=== PATIENT | female | born 1970 | race Caucasian/White ===

== ENCOUNTER 2016-08-23 12:27 | Emergency (ER) | payer SELFPAY ==
[~2016-08-23] VITALS: Ht 177.8 cm; Wt 94.0 kg
[~2016-08-23 12:27] MED LIST: AGM875T PO; CODE-54 PO; HYDR-757 PO; HYDR1TAB PO; HYOS0.1283 SL; NITR-65 PO; ONDA4TAB8 PO; PANT40TA2 PO; SULF1TAB35 PO; TRM50T PO
--- NOTE | 2016-08-23 12:37 | ED Fall/Injury ---
General Stated Complaint: R SIDE RIB PAIN, FALL Source: patient Exam Limitations: no limitations History of Present Illness Time seen by provider: 12:36 Initial Comments To ER with right sided chest wall pain that began last night when she slipped and fell in her bathroom striking the right side of her chest on the edge of her bathtub. Pain is worsened with deep breathing and movement especially bending over. She has minimal pain in her abdomen Occurred: yesterday Severity: moderate Allergies and Home Medications Allergies Coded Allergies: codeine (Verified Adverse Reaction, Unknown, VOMITING, 01/06/15) Home Medications No Active Prescriptions or Reported Meds Constitutional: see HPI Eyes: No Symptoms Reported Ears, Nose, Mouth, Throat: no symptoms reported Respiratory: no symptoms reported Cardiovascular: no symptoms reported Genitourinary: no symptoms reported Musculoskeletal: no symptoms reported Skin: no symptoms reported Psychiatric/Neurological: No Symptoms Reported Past Tpqavlc-Qusfcw-Aqgpht Hx Patient Social History Type Used: Cigarettes Recent Foreign Travel: No Contact w/Someone Who Travel: No Recent Hopitalizations: No (DETOX 10 YEARS) Immunizations Up To Date Tetanus Booster (TDap): Less than 5yrs Surgeries HX Surgeries: No Respiratory Hx Respiratory Disorders: No Cardiovascular Hx Cardiac Disorders: No Neurological Hx Neurological Disorders: No Reproductive System Hx Reproductive Disorders: Yes Female Reproductive Disorders: Denies Genitourinary Hx Genitourinary Disorders: No Gastrointestinal Hx Gastrointestinal Disorders: Yes Gastrointestinal Disorders: Diverticulosis Musculoskeletal Hx Musculoskeletal Disorders: No Endocrine Hx Endocrine Disorders: No HEENT HX ENT Disorders: No Cancer Hx Cancer: No Psychosocial Hx Psychiatric Problems: Yes Behavioral Health Disorders: Sleep Difficulties, Depression Integumentary HX Skin/Integumentary Disorder: No Blood Transfusions Hx Blood Disorders: No Physical Exam Vital Signs Vital Sign - Last 12Hours 08/23/16 12:37 Temp 98.2 Pulse 99 Resp 18 B/P (MAP) 142/96 Pulse Ox 94 O2 Delivery Room Air Capillary Refill : General Appearance: WD/WN, no apparent distress HEENT: PERRL/EOMI, normal ENT inspection Neck: non-tender, full range of motion Cardiovascular: other (right side of the chest wall is tender to palpation though there is no crepitus ecchymosis or abrasion) Respiratory: no respiratory distress, no accessory muscle use Gastrointestinal: normal bowel sounds, non tender, soft Extremities: normal range of motion, non-tender 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: alert, normal mood/affect, oriented x 3 Skin: normal color, warm/dry Grabill Coma Score Best Eye Response: (4) Open Spontaneously Best Verbal Response: (5) Oriented Best Motor Response: (6) Obeys Commands Lida Total: 15 Progress/Results/Core Measures Results/Orders My Orders Orders - SHAILESH REYES APRN Ribs/Unilateral With Chest (08/23/16 12:35) Ibuprofen Tablet (Motrin Tablet) (08/23/16 12:45) Tramadol Tablet (Ultram Tablet) (08/23/16 12:45) Medications Given in ED Current Medications Medications Dose Ordered Sig/Gill Route Start Time Stop Time Status Last Admin Dose Admin Ibuprofen 800 mg ONCE ONCE PO 08/23/16 12:45 08/23/16 12:46 DC 08/23/16 12:44 800 MG Tramadol HCl 50 mg ONCE ONCE PO 08/23/16 12:45 08/23/16 12:46 DC 08/23/16 12:44 50 MG Vital Signs/I&O Vital Sign - Last 12Hours 08/23/16 08/23/16 08/23/16 12:37 12:44 12:44 Temp 98.2 98.2 98.2 Pulse 99 Resp 18 B/P (MAP) 142/96 Pulse Ox 94 O2 Delivery Room Air Diagnostic Imaging Diagonstic Imaging: CT ( she) Comments NAME: DAMIR PUENTES [facility] REC#: [id number] PT STATUS: REG ER : 1970 PHYSICIAN: SHAILESH REYES APRN ADMIT DATE: 08/23/16/ER Draft Date of Exam:08/23/16 RIBS/UNILATERAL WITH CHEST PA chest with right sided rib series. INDICATION: Fall. Right-sided rib pain. FINDINGS: Appearance of the lungs is unchanged from the previous examination. There are chronic prominence of the basilar interstitial markings. Metallic foreign body projects over of the left chest. This is unchanged. There is a remote left-sided rib fracture. There is no effusion. There is no pneumothorax. The right-sided rib series demonstrates no evidence of a right-sided rib fracture. IMPRESSION: 1. Stable radiograph appearance to the chest. Chronic prominent pulmonary interstitial markings are demonstrated. There is an unchanged metallic foreign body projecting over the left lung. There is a remote left rib fracture. No acute right-sided rib fractures are evident. Dictated on workstation # [id number] Dict: 08/23/16 1259 Trans: 08/23/16 1306 [facility] [id number] Interpreted by: RICARDO HERRERA MD Electronically signed by: Departure Impression Impression: Primary Impression: Chest wall injury Disposition: 01 HOME, SELF-CARE Condition: Stable Departure-Patient Inst. Decision time for Depature: 13:22 Referrals: [facility] ([place]P/Family) Primary Care Physician Patient Instructions: CHEST CONTUSION Add. Discharge Instructions: 1. Return to ER for any concerns 2. Follow up with your regular doctor next week 3. Pain medication as directed Scripts Tramadol HCl (Ultram) 50 Mg Tablet 50 MG PO Q6H Y for PAIN-MILD TO MODERATE, #14 TAB Prov: SHAILESH REYES APRN 08/23/16 SHAILESH REYES APRN Aug 23, 2016 12:37
[2016-08-23] MEDS ORDERED: IBUPROFEN 800 MG (MOTRIN) TAB PO ONE (12:45)
--- NOTE | 2016-08-23 13:06 | Diagnostic Imaging Report ---
PA chest with right sided rib series. INDICATION: Fall. Right-sided rib pain. FINDINGS: Appearance of the lungs is unchanged from the previous examination. There are chronic prominence of the basilar interstitial markings. Metallic foreign body projects over of the left chest. This is unchanged. There is a remote left-sided rib fracture. There is no effusion. There is no pneumothorax. The right-sided rib series demonstrates no evidence of a right-sided rib fracture. IMPRESSION: 1. Stable radiograph appearance to the chest. Chronic prominent pulmonary interstitial markings are demonstrated. There is an unchanged metallic foreign body projecting over the left lung. There is a remote left rib fracture. No acute right-sided rib fractures are evident. Dictated by: Dictated on workstation # [id number]
[2016-08-23] MEDS ORDERED: TRAM-42 PO (13:24)
[2016-08-23 13:29] VITALS: BP 142/96
== END 2016-08-23 13:29 | disposition home or self-care (01) ==
LOC: EDUNIT# 12:27 → ER 12:28
DX: S20.211A Contusion of right front wall of thorax, initial encounter (principal); W18.2XXA Fall in (into) shower or empty bathtub, initial encounter; Y92.012 Bathroom of single-family (private) house as the place of occurrence of the external cause; Y99.8 Other external cause status
CPT/HCPCS: 71101; 99283

== ENCOUNTER 2017-01-20 10:27 | Emergency (ER) | payer SELFPAY ==
[~2017-01-20] VITALS: Ht 177.8 cm; Wt 93.0 kg
[~2017-01-20 10:27] MED LIST changes: +TRAM-42 PO
--- NOTE | 2017-01-20 11:10 | ED Abdominal Pain ---
General Chief Complaint: Abdominal/GI Problems Stated Complaint: LEFT LOWER SIDE PAIN Source of Information: Patient Exam Limitations: No Limitations History of Present Illness Time Seen By Provider: 11:08 Initial Comments To ER with left lower quadrant abdominal pain since yesterday. She has a history of diverticulitis and believes this to be the same. She has nausea and chills but no vomiting or measured fever. Continues to have bowel movements. Timing/Duration: 1-2 Days Severity/Quality: Moderate Location: LLQ Radiation: No Radiation Associated Symptoms: Nausea/Vomiting Allergies and Home Medications Allergies Coded Allergies: codeine (Verified Adverse Reaction, Unknown, VOMITING, 01/06/15) Home Medications Ciprofloxacin HCl 500 Mg Tablet, 500 MG PO BID, #14 Prescribed by: SHAILESH REYES on 01/20/17 1225 Metronidazole 500 Mg Tablet, 500 MG PO TID, #21 Prescribed by: SHAILESH REYES on 01/20/17 1225 Ondansetron 8 Mg Tab.rapdis, 8 MG PO Q6H PRN for NAUSEA/VOMITING-1ST LINE, #10 Prescribed by: SHAILESH REYES on 01/20/17 1225 Tramadol HCl 50 Mg Tablet, 50 MG PO Q6H PRN for PAIN-MILD TO MODERATE, #14 Prescribed by: SHAILESH REYES on 08/23/16 1324 Tramadol HCl 50 Mg Tablet, 50 MG PO Q6H PRN for PAIN-MODERATE TO SEVERE, #14 Prescribed by: SHAILESH REYES on 01/20/17 1225 Review of Systems Constitutional: see HPI, chills, No fever EENTM: No Symptoms Reported Respiratory: No Symptoms Reported Cardiovascular: No Symptoms Reported Gastrointestinal: See HPI, Abdominal Pain, Denies Diarrhea, Nausea, Denies Vomiting ( lamella) Genitourinary: No Symptoms Reported Musculoskeletal: no symptoms reported Skin: no symptoms reported Psychiatric/Neurological: No Symptoms Reported Endocrine: No Symptoms Reported (lamella) Past Ylpzkck-Upvcbc-Eiwssl Hx Patient Social History Alcohol Use: Occasionally Uses Recreational Drug Use: No Type Used: Cigarettes 2nd Hand Smoke Exposure: Yes Recent Foreign Travel: No Contact w/Someone Who Travel: No Recent Hopitalizations: No (DETOX 10 YEARS) Immunizations Up To Date Tetanus Booster (TDap): Less than 5yrs Surgeries History of Surgeries: No Respiratory History of Respiratory Disorde: No Cardiovascular History of Cardiac Disorders: No Neurological History of Neurological Disord: No Reproductive System Hx Reproductive Disorders: Yes Female Reproductive Disorders: Denies Gastrointestinal History of Gastrointestinal Di: Yes Gastrointestinal Disorders: Diverticulosis Musculoskeletal History of Musculoskeletal Dis: No Endocrine History of Endocrine Disorders: No Cancer History of Cancer: No Psychosocial History of Psychiatric Problem: Yes Behavioral Health Disorders: Sleep Difficulties, Depression Integumentary History of Skin or Integumenta: No Blood Transfusions History of Blood Disorders: No Physical Exam Vital Signs VS - Last 72 Hours, by Label 01/20/17 11:06 Temp 97.6 Pulse 78 Resp 18 B/P (MAP) 142/78 Pulse Ox 98 O2 Delivery Room Air Capillary Refill : General Appearance: WD/WN, no apparent distress HEENT: PERRL/EOMI, normal ENT inspection Neck: non-tender, full range of motion Respiratory: normal breath sounds, no respiratory distress, no accessory muscle use Cardiovascular: regular rate, rhythm, no murmur Gastrointestinal: normal bowel sounds, soft, tenderness (LLQ) Extremities: normal range of motion, non-tender, normal inspection 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: alert, normal mood/affect, oriented x 3 Progress/Results/Core Measures Results/Orders Lab Results Laboratory Tests Test 01/20/17 11:00 01/20/17 11:17 Range/Units White Blood Count 4.3 4.3-11.0 10^3/uL Red Blood Count 4.00 L 4.35-5.85 10^6/uL Hemoglobin 13.7 11.5-16.0 G/DL Hematocrit 40 35-52 % Mean Corpuscular Volume 101 H 80-99 FL Mean Corpuscular Hemoglobin 34 25-34 PG Mean Corpuscular Hemoglobin Concent 34 32-36 G/DL Red Cell Distribution Width 12.3 10.0-14.5 % Platelet Count 219 130-400 10^3/uL Mean Platelet Volume 9.1 7.4-10.4 FL Neutrophils (%) (Auto) 60 42-75 % Lymphocytes (%) (Auto) 26 12-44 % Monocytes (%) (Auto) 13 H 0-12 % Eosinophils (%) (Auto) 1 0-10 % Basophils (%) (Auto) 1 0-10 % Neutrophils # (Auto) 2.6 1.8-7.8 X 10^3 Lymphocytes # (Auto) 1.1 1.0-4.0 X 10^3 Monocytes # (Auto) 0.5 0.0-1.0 X 10^3 Eosinophils # (Auto) 0.0 0.0-0.3 10^3/uL Basophils # (Auto) 0.0 0.0-0.1 10^3/uL Urine Test NEGATIVE NEGATIVE Sodium Level 136 135-145 MMOL/L Potassium Level 3.9 3.6-5.0 MMOL/L Chloride Level 106 98-107 MMOL/L Carbon Dioxide Level 22 21-32 MMOL/L Anion Gap 8 5-14 MMOL/L Blood Urea Nitrogen 9 7-18 MG/DL Creatinine 0.75 0.60-1.30 MG/DL Estimat Glomerular Filtration Rate > 60 BUN/Creatinine Ratio 12 Glucose Level 128 H 70-105 MG/DL Calcium Level 8.9 8.5-10.1 MG/DL Total Bilirubin 0.7 0.1-1.0 MG/DL Aspartate Amino Transf (AST/SGOT) 26 5-34 U/L Alanine Aminotransferase (ALT/SGPT) 20 0-55 U/L Alkaline Phosphatase 58 40-136 U/L Total Protein 6.4 6.4-8.2 GM/DL Albumin 3.9 3.2-4.5 GM/DL Urine Color YELLOW Urine Clarity CLEAR Urine pH 6 5-9 Urine Specific [place] 1.020 1.016-1.022 Urine Protein NEGATIVE NEGATIVE Urine Glucose (UA) NEGATIVE NEGATIVE Urine Ketones NEGATIVE NEGATIVE Urine Nitrite NEGATIVE NEGATIVE Urine Bilirubin NEGATIVE NEGATIVE Urine Urobilinogen NORMAL NORMAL MG/DL Urine Leukocyte Esterase NEGATIVE NEGATIVE Urine RBC (Auto) 2+ H NEGATIVE Urine RBC 0-2 /HPF Urine WBC RARE /HPF Urine Squamous Epithelial Cells 2-5 /HPF Urine Crystals NONE /LPF Urine Bacteria NEGATIVE /HPF Urine Casts NONE /LPF Urine Mucus SMALL H /LPF Urine Culture Indicated NO My Orders Orders - SHAILESH REYES APRN Cbc With Automated Diff (01/20/17 11:06) Ua Culture If Indicated (01/20/17 11:06) Urine Bedside (01/20/17 11:06) Saline Lock/Iv-Start (01/20/17 11:06) Ct Abdomen/Pelvis W (01/20/17 11:06) Fentanyl Injection (Sublimaze Injection (01/20/17 11:15) Ondansetron Injection (Zofran Injectio (01/20/17 11:15) Hcg,Qualitative Urine (01/20/17 11:32) Comprehensive Metabolic Panel (01/20/17 11:45) Medications Given in ED Current Medications Medications Dose Ordered Sig/Gill Route Start Time Stop Time Status Last Admin Dose Admin Fentanyl Citrate 50 mcg ONCE ONCE IVP 01/20/17 11:15 01/20/17 11:16 DC 01/20/17 11:37 50 MCG Ondansetron HCl 4 mg ONCE ONCE IVP 01/20/17 11:15 01/20/17 11:16 DC 01/20/17 11:36 4 MG Vital Signs/I&O Vital Sign - Last 12Hours 01/20/17 11:06 Temp 97.6 Pulse 78 Resp 18 B/P (MAP) 142/78 Pulse Ox 98 O2 Delivery Room Air Diagnostic Imaging Diagonstic Imaging: CT Comments NAME: DAMIR PUENTES [facility] REC#: [id number] PT STATUS: REG ER : 1970 PHYSICIAN: SHAILSEH REYES OPERATIONS MANAGEMENT TRAINEE ADMIT DATE: 01/20/17/ER Draft Date of Exam:01/20/17 CT ABDOMEN/PELVIS W PROCEDURE: CT abdomen and pelvis with contrast. TECHNIQUE: Multiple contiguous axial images were obtained through the abdomen and pelvis after administration of intravenous contrast. INDICATION: Left flank pain Comparison is made to study of 01/16/2016. No focal hepatic or splenic lesion is identified. No gallbladder or pancreatic lesion is seen and the adrenal glands and kidneys are unremarkable in appearance. There is mild mural thickening throughout the jejunum without significant perienteric inflammation. There are numerous diverticula again demonstrated throughout the colon without evidence of pericolonic edema or inflammation. No free intraperitoneal gas or free fluid is identified. There has been enlargement of the ovaries bilaterally with numerous follicles. Partially opacified urinary bladder is within normal limits. IMPRESSION: Duodenal mural thickening may represent enteritis. No significant mesenteric inflammation or fluid collection is identified. Extensive diverticulosis of the colon without evidence of active inflammation. Increase in numerous bilateral ovarian follicles. If indicated, pelvic ultrasonography could be considered for followup. Dictated on workstation # [id number] Dict: 01/20/17 1207 Trans: 01/20/17 1220 [facility] [id number] Interpreted by: JOANNA ZAMORA MD Electronically signed by: Departure Impression Impression: Primary Impression: Diverticulitis of intestine Disposition: 01 HOME, SELF-CARE Condition: Stable Departure-Patient Inst. Decision time for Depature: 12:23 Referrals: [facility] (PCP/Family) Primary Care Physician Patient Instructions: Diverticulitis (DC) Add. Discharge Instructions: 1. Return to ER for any concerns 2. Medication as directed 3. Follow-up with her doctor next week All discharge instructions reviewed with patient and/or family. Voiced understanding. Scripts Metronidazole (Flagyl) 500 Mg Tablet 500 MG PO TID, #21 TAB Prov: SHAILESH REYES APRN 01/20/17 Ciprofloxacin HCl (Cipro) 500 Mg Tablet 500 MG PO BID, #14 TAB Prov: SHAILESH REYES APRN 01/20/17 Ondansetron (Zofran Odt) 8 Mg Tab.rapdis 8 MG PO Q6H Y for NAUSEA/VOMITING-1ST LINE, #10 TAB Prov: SHAILESH REYES APRN 01/20/17 Tramadol HCl (Ultram) 50 Mg Tablet 50 MG PO Q6H Y for PAIN-MODERATE TO SEVERE, #14 TAB Prov: SHAILESH REYES APRN 01/20/17 Work/School Note: Work Release Form Date Seen in the Emergency Department: Jan 20, 2017 Return to Work: Jan 22, 2017 Restrictions: No Restrictions SHAILESH REYES APRN Jan 20, 2017 11:10
[2017-01-20] MEDS ORDERED: ONDANSETRON 4 MG/2 ML (SDV) Z0FRAN IVP ONE (11:15)
[2017-01-20] MEDS ORDERED: fentaNYL INJECTION 100 MCG/2 ML AMP IVP ONE (11:15)
[2017-01-20 11:31] LABS: BILIRUBIN,URINE NEGATIVE (NEGATIVE); KETONES,URINE NEGATIVE (NEGATIVE); LEUKOCYTE ESTERASE ,URINE NEGATIVE (NEGATIVE); NITRITE,URINE NEGATIVE (NEGATIVE); PH,URINE 6 (5-9); PROTEIN,URINE NEGATIVE (NEGATIVE); UROBILINOGEN,URINE NORMAL (NORMAL)
[2017-01-20 11:32] LABS: WBC,URINE RARE /HPF
[2017-01-20 11:38] LABS: BASOPHILS % (AUTO) 1 % (0-10); EOSINOPHILS % (AUTO) 1 % (0-10); LYMPHOCYTES # (AUTO) 1.1 X 10^3 (1.0-4.0); LYMPHOCYTES % (AUTO) 26 % (12-44); MEAN CORPUSCULAR HEMOGLOBIN 34 PG (25-34); MEAN CORPUSCULAR HGB CONC 34 G/DL (32-36); MEAN CORPUSCULAR VOLUME 101 FL (80-99); MEAN PLATELET VOLUME 9.1 FL (7.4-10.4); MONOCYTES # (AUTO) 0.5 X 10^3 (0.0-1.0); MONOCYTES % (AUTO) 13 % (0-12); NEUTROPHILS # (AUTO) 2.6 X 10^3 (1.8-7.8); NEUTROPHILS % (AUTO) 60 % (42-75); PLATELET COUNT 219 10^3/uL (130-400); RED CELL DISTRIBUTION WIDTH 12.3 % (10.0-14.5); WHITE BLOOD COUNT 4.3 10^3/uL (4.3-11.0)
[2017-01-20 12:02] LABS: ALANINE AMINOTRANSFERASE 20 U/L (0-55); ALBUMIN 3.9 GM/DL (3.2-4.5); ANION GAP 8 MMOL/L (5-14); ASPARTATE AMINO TRANSFERASE 26 U/L (5-34); BILIRUBIN,TOTAL 0.7 MG/DL (0.1-1.0); BLOOD UREA NITROGEN 9 MG/DL (7-18); BUN/CREATININE RATIO 12; CALCIUM 8.9 MG/DL (8.5-10.1); CARBON DIOXIDE 22 MMOL/L (21-32); CHLORIDE 106 MMOL/L (98-107); CREATININE SERUM 0.75 MG/DL (0.60-1.30); GFR ESTIMATED > 60; GLUCOSE 128 MG/DL (70-105); POTASSIUM 3.9 MMOL/L (3.6-5.0); SODIUM 136 MMOL/L (135-145); TOTAL PROTEIN 6.4 GM/DL (6.4-8.2)
--- NOTE | 2017-01-20 12:21 | Diagnostic Imaging Report ---
PROCEDURE: CT abdomen and pelvis with contrast. TECHNIQUE: Multiple contiguous axial images were obtained through the abdomen and pelvis after administration of intravenous contrast. INDICATION: Left flank pain Comparison is made to study of 01/16/2016. No focal hepatic or splenic lesion is identified. No gallbladder or pancreatic lesion is seen and the adrenal glands and kidneys are unremarkable in appearance. There is mild mural thickening throughout the jejunum without significant perienteric inflammation. There are numerous diverticula again demonstrated throughout the colon without evidence of pericolonic edema or inflammation. No free intraperitoneal gas or free fluid is identified. There has been enlargement of the ovaries bilaterally with numerous follicles. Partially opacified urinary bladder is within normal limits. IMPRESSION: Duodenal mural thickening may represent enteritis. No significant mesenteric inflammation or fluid collection is identified. Extensive diverticulosis of the colon without evidence of active inflammation. Increase in numerous bilateral ovarian follicles. If indicated, pelvic ultrasonography could be considered for followup. Dictated by: Dictated on workstation # [id number]
[2017-01-20] MEDS ORDERED: CIPR-225 PO (12:25)
[2017-01-20] MEDS ORDERED: METR500T PO (12:25)
[2017-01-20] MEDS ORDERED: TRAM-42 PO (12:25)
[2017-01-20] MEDS ORDERED: ONDA8TAB9 PO (12:25)
[2017-01-20 12:33] VITALS: BP 142/78
== END 2017-01-20 12:35 | disposition home or self-care (01) ==
LOC: EDUNIT# 10:27 → ER 10:31
DX: K57.92 Diverticulitis of intestine, part unspecified, without perforation or abscess without bleeding; Z77.22 Contact with and (suspected) exposure to environmental tobacco smoke (acute) (chronic); F32.9 Major depressive disorder, single episode, unspecified
CPT/HCPCS: 36415; 74177; 80053; 81000; 84703; 85025; 96374; 96375

== ENCOUNTER 2017-07-09 10:40 | Emergency (ER) | payer SELFPAY ==
[~2017-07-09] VITALS: Ht 177.8 cm; Wt 93.0 kg
[~2017-07-09 10:40] MED LIST changes: +CIPR-225 PO; +METR500T PO; +ONDA8TAB9 PO
--- OUTSIDE RECORDS SUMMARY | 2017-07-09 10:47 | XMS REPORT ---
Author Author SHEPPARD MARK Organization [facility] Address [address] [place] [address] Care Team Providers Care Sporting Goods Sales Manager Name Role Phone MARK SHEPPARD Unavailable PROBLEMS Type Condition ICD9-CM Code [id number] Code Onset Dates Condition Status SNOMED Code Problem Encounter for dental examination Z01.20 Active 777601237 Problem Anxiety F41.9 Active 78798390 Problem Insomnia G47.00 Active 573610919 Problem Depression F32.9 Active 66134912 Problem COPD (chronic obstructive pulmonary disease) J44.9 Active 01613611 Problem Psoriasis L40.9 Active 9555265 ALLERGIES Substance Reaction Event Type Date Status Codeine Sulfate nausea and vomiting Drug Allergy September, Active SOCIAL HISTORY Never Assessed PLAN OF CARE Activity Details Follow Up 1 Year, prn Reason: Pending Test Mammogram, Bilateral Screening VITAL SIGNS Height 70 in 2016-09-02 Weight 205 lbs 2016-09-02 Temperature 99.3 degrees Fahrenheit 2016-09-02 Heart Rate 78 bpm 2016-09-02 Respiratory Rate 20 2016-09-02 BMI 29.41 kg/m2 2016-09-02 Blood pressure systolic 122 mmHg 2016-09-02 Blood pressure diastolic 84 mmHg 2016-09-02 MEDICATIONS Medication Instructions Dosage Frequency Start Date End Date Duration Status Flagyl 500 MG Orally 2 times a day 1 tablet 12h September, September, 07 days Active RESULTS Name Result Date Reference Range PAP TEST, HPV IF ASCUS 2016-09-02 DIAGNOSIS: Specimen adequacy: Clinician provided ICD10: Performed by: . . Pathologist provided ICD10: Note: . CULTURE, GENITAL 2016-09-02 Genital Culture, Routine Final report Result 1 TEST, URINE (IN HOUSE) 2016-09-02 RESULTS Negative Lot # [id number] Control 2017-12-01 Exp date TRICHOMONAS (IN HOUSE) 2016-09-02 TRICHOMONAS negative Control + Lot # [id number] Exp date 2017-10 UA LONG DIP (IN HOUSE) 2016-09-02 Lot # [id number] Exp date 2017-07-01 Clarity Clear Color Yellow Odor None GLU Negative ADONAY Negative KET Negative SG 1.025 BLO 1+ pH 7.0 Protein Negative URO 1.0 NIT Negative JARETH Negative Lot # Exp date PDF Report 2016-09-02 PDF Report1 LCLS BACTERIAL VAGINOSIS (IN HOUSE) 2016-09-02 RESULTS positive Control + Lot # [id number] Exp date 2017-05 GC/CHLAM PROBE (STATE) 2016-09-02 CHLAMYDIA Negative GC Negative PROCEDURES Procedure Date Ordered Result Body Site No Charge September 02, 2016 TRICHOMONAS ASSAY W/OPTIC September 02, 2016 URINE TEST September 02, 2016 URINALYSIS, AUTO, W/O SCOPE September 02, 2016 CULTURE, BACTERIA, OTHER September 02, 2016 CHAVIS VAG, DNA, DIR PROBE September 02, 2016 SPECIMEN HANDLING September 02, 2016 IMMUNIZATIONS No Known Immunizations MEDICAL (GENERAL) HISTORY Type Description Date Medical History diverticulitis Medical History [facility] Hospitalization History Diverticulitis 2012
--- OUTSIDE RECORDS SUMMARY | 2017-07-09 10:47 | XMS REPORT ---
Author Author MARK SHEPPARD [facility] [address] Address [address] [place] [address] Care Team Providers Care Solar Sales Associate Name Role Phone MARK SHEPPARD Unavailable PROBLEMS Type Condition ICD9-CM Code [id number] Code Onset Dates Condition Status SNOMED Code Problem Encounter for dental examination Z01.20 Active 715111232 Problem Anxiety F41.9 Active 86208754 Problem Insomnia G47.00 Active 322671010 Problem Depression F32.9 Active 24334435 Problem COPD (chronic obstructive pulmonary disease) J44.9 Active 98778114 Problem Psoriasis L40.9 Active 5851057 ALLERGIES No Information SOCIAL HISTORY Never Assessed PLAN OF CARE VITAL SIGNS MEDICATIONS No Known Medications RESULTS No Results PROCEDURES Procedure Date Ordered Result Body Site COMPLETE CBC W/AUTO DIFF WBC September 03, 2016 LIPID PANEL September 03, 2016 VENIPUNCT, ROUTINE* September 03, 2016 COMPREHEN METABOLIC PANEL September 03, 2016 IMMUNIZATIONS No Known Immunizations MEDICAL (GENERAL) HISTORY Type Description Date Medical History diverticulitis Medical History [facility] Hospitalization History Diverticulitis 2012
--- OUTSIDE RECORDS SUMMARY | 2017-07-09 10:47 | XMS REPORT ---
Author Author ANDI MONIQUE Organization [facility] Address [address] [place] [address] Care Team Providers Care Nutrition Partner Name Role Phone ANDI MONIQUE Unavailable PROBLEMS Type Condition ICD9-CM Code [id number] Code Onset Dates Condition Status SNOMED Code Problem Encounter for dental examination Z01.20 Active 897421922 Problem Anxiety F41.9 Active 26108552 Problem Insomnia G47.00 Active 772694993 Problem Depression F32.9 Active 66702160 Problem COPD (chronic obstructive pulmonary disease) J44.9 Active 95392346 Problem Psoriasis L40.9 Active 5892055 ALLERGIES Substance Reaction Event Type Date Status Codeine Sulfate nausea and vomiting Drug Allergy September, Active SOCIAL HISTORY Never Assessed PLAN OF CARE Activity Details Follow Up First Available Reason:SRP VITAL SIGNS Heart Rate 80 bpm 2016-09-19 Blood pressure systolic 111 mmHg 2016-09-19 Blood pressure diastolic 63 mmHg 2016-09-19 MEDICATIONS No Known Medications RESULTS No Results PROCEDURES Procedure Date Ordered Result Body Site COMP ORAL EVALUATION - NEW/EST PT September 19, 2016 INTRAORL-PERIAPICAL 1 FILM 30416 September 19, 2016 BITEWINGS - FOUR FILMS September 19, 2016 INTRAORL-PERIAPICAL EA ADD FILM September 19, 2016 PANORAMIC FILM SEE ALSO CODE [id number] September 19, 2016 INTRAORL-PERIAPICAL EA ADD FILM September 19, 2016 INTRAORL-PERIAPICAL EA ADD FILM September 19, 2016 INTRAORL-PERIAPICAL EA ADD FILM September 19, 2016 INTRAORL-PERIAPICAL EA ADD FILM September 19, 2016 IMMUNIZATIONS No Known Immunizations MEDICAL (GENERAL) HISTORY Type Description Date Medical History diverticulitis Medical History [facility] Hospitalization History Diverticulitis 2012
--- OUTSIDE RECORDS SUMMARY | 2017-07-09 10:49 | XMS REPORT | Continuity of Care Document ---
Author Author [facility] Organization [facility] Address Unknown Phone Unavailable Allergies Active Description Code Type Severity Reaction Onset Reported/Identified Relationship to Patient Clinical Status Yes No Known Drug Allergies [id number] Drug Allergy Unknown N/A 07/17/2010 Yes codeine [id number] Drug Allergy Unknown VOMITING 01/06/2015 Medications There is no data. Problems Date Dx Coded Attending Type Code Diagnosis Diagnosed By 07/19/2010 Ot 562.11 01/07/2011 Ot 562.10 01/07/2011 Ot 789.05 12/25/2012 SRIRAM KING MD Ot 922.1 CONTUSION OF CHEST WALL 12/25/2012 SRIRAM KING MD Ot 959.11 OTH INJURY OF CHEST WALL 12/25/2012 SRIRAM KING MD Ot E000.8 OTHER EXTERNAL CAUSE STATUS 12/25/2012 SRIRAM KING MD Ot E849.0 ACCIDENT IN HOME 12/25/2012 SRIRAM KING MD Ot E880.9 FALL ON STAIR/STEP NEC 05/22/2013 JOAQUIN SCHWARTZ MD Ot 305.1 TOBACCO USE DISORDER 05/22/2013 JOAQUIN SCHWARTZ MD Ot 786.50 CHEST PAIN NOS 01/06/2015 SHELLEY LU MD Ot 682.3 CELLULITIS OF ARM 01/06/2015 SHELLEY LU MD Ot 989.5 TOXIC EFFECT VENOM 01/06/2015 SHELLEY LU MD Ot E905.3 HORNET/WASP/BEE STING 01/06/2015 ALY JOHNSON, SHELLEY Solis Ot V06.1 [id number], COMBINED [ 02/23/2015 DAMIR CAMACHO DO Ot S80.02XA CONTUSION OF LEFT KNEE, INITIAL ENCOUNTE 02/23/2015 DAMIR CAMACHO DO Ot S89.92XA UNSPECIFIED INJURY OF LEFT LOWER LEG, IN 02/23/2015 DOUG DO, DAMIR K Ot W22.8XXA STRIKING AGAINST OR STRUCK BY OTHER OBJE 02/23/2015 DOUG DO, DAMIR K Ot Y99.8 OTHER EXTERNAL CAUSE STATUS 02/23/2015 FANNIE JOHNSON, ANKIT Perea Ot S80.02XD CONTUSION OF LEFT KNEE, SUBSEQUENT ENCOU 02/23/2015 FANNIE JOHNSON, ANKIT Perea Ot W22.8XXD STRIKING AGAINST OR STRUCK BY OTHER OBJE 02/23/2015 FANNIE JOHNSON, ANKIT Perea Ot Y99.8 OTHER EXTERNAL CAUSE STATUS 01/16/2016 DOUG DO, DAMIR K Ot F10.10 ALCOHOL ABUSE, UNCOMPLICATED 01/16/2016 DOUG DO, DAMIR K Ot F12.10 CANNABIS ABUSE, UNCOMPLICATED 01/16/2016 DOUG DO, DAMIR K Ot F17.210 NICOTINE DEPENDENCE, CIGARETTES, UNCOMPL 01/16/2016 DOUG DO, DAMIR K Ot K57.30 DVRTCLOS OF LG INT W/O PERFORATION OR AB 01/16/2016 DOUG DO, DAMIR K Ot N39.0 URINARY TRACT INFECTION, SITE NOT SPECIF 01/16/2016 DOUG DO, DAMIR K Ot R10.30 LOWER ABDOMINAL PAIN, UNSPECIFIED 01/17/2016 DOUG DO, DAMIR K Ot F10.10 ALCOHOL ABUSE, UNCOMPLICATED 01/17/2016 DOUG DO, DAMIR K Ot F12.10 CANNABIS ABUSE, UNCOMPLICATED 01/17/2016 DOUG DO, DAMIR K Ot F17.210 NICOTINE DEPENDENCE, CIGARETTES, UNCOMPL 01/17/2016 DOUG DO, DAMIR K Ot K57.30 DVRTCLOS OF LG INT W/O PERFORATION OR AB 01/17/2016 DOUG DO, DAMIR K Ot N39.0 URINARY TRACT INFECTION, SITE NOT SPECIF 01/17/2016 DOUG DO, DAMIR K Ot R10.30 LOWER ABDOMINAL PAIN, UNSPECIFIED 08/23/2016 SHAILESH REYES APRN Ot S20.211A CONTUSION OF RIGHT FRONT WALL OF THORAX, 08/23/2016 SHAILESH REYES APRN Ot S29.9XXA UNSPECIFIED INJURY OF THORAX, INITIAL EN 08/23/2016 SHAILESH REYES APRN Ot W18.2XXA FALL IN (INTO) SHOWER OR EMPTY BATHTUB, 08/23/2016 SHAILESH REYES APRN Ot Y92.012 BATHROOM OF SINGLE-FAMILY (PRIVATE) HOUS 08/23/2016 SHAILESH REYES APRN Ot Y99.8 OTHER EXTERNAL CAUSE STATUS 08/25/2016 SHAILESH REYES APRN Ot S20.211A CONTUSION OF RIGHT FRONT WALL OF THORAX, 08/25/2016 SHAILESH REYES APRN Ot S29.9XXA UNSPECIFIED INJURY OF THORAX, INITIAL EN 08/25/2016 SHAILESH REYES APRN Ot W18.2XXA FALL IN (INTO) SHOWER OR EMPTY BATHTUB, 08/25/2016 SHAILESH REYES APRN Ot Y92.012 BATHROOM OF SINGLE-FAMILY (PRIVATE) HOUS 08/25/2016 SHAILESH REYES APRN Ot Y99.8 OTHER EXTERNAL CAUSE STATUS 01/20/2017 SHAILESH REYES APRN Ot F32.9 MAJOR DEPRESSIVE DISORDER, SINGLE EPISOD 01/20/2017 SHAILESH REYES APRN Ot K57.92 DVTRCLI OF INTEST, PART UNSP, W/O PERF O 01/20/2017 SHAILESH REYES APRN Ot R10.32 LEFT LOWER QUADRANT PAIN 01/20/2017 SHAILESH REYES APRN Ot Z77.22 CNTCT W AND EXPSR TO ENVIRON TOBACCO SMO 01/22/2017 SHAILESH REYES APRN Ot F32.9 MAJOR DEPRESSIVE DISORDER, SINGLE EPISOD 01/22/2017 SHAILESH REYES APRN Ot K57.92 DVTRCLI OF INTEST, PART UNSP, W/O PERF O 01/22/2017 SHAILESH REYES APRN Ot R10.32 LEFT LOWER QUADRANT PAIN 01/22/2017 SHAILESH REYES APRN Ot Z77.22 CNTCT W AND EXPSR TO ENVIRON TOBACCO SMO Procedures There is no data. Results Test Result Range Complete blood count (CBC) with automated white blood cell (WBC) differential - 01/16/16 08:42 Blood leukocytes automated count (number/volume) 4.9 10*3/uL 4.3-11.0 Blood erythrocytes automated count (number/volume) 4.01 10*6/uL 4.35-5.85 Venous blood hemoglobin measurement (mass/volume) 14.1 g/dL 11.5-16.0 Blood hematocrit (volume fraction) 41 % 35-52 Automated erythrocyte mean corpuscular volume 102 [foz_us] 80-99 Automated erythrocyte mean corpuscular hemoglobin (mass per erythrocyte) 35 pg 25-34 Automated erythrocyte mean corpuscular hemoglobin concentration measurement ( mass/volume) 35 g/dL 32-36 Automated erythrocyte distribution width ratio 12.4 % 10.0-14.5 Automated blood platelet count (count/volume) 229 10*3/uL 130-400 Automated blood platelet mean volume measurement 9.4 [foz_us] 7.4-10.4 Automated blood neutrophils/100 leukocytes 48 % 42-75 Automated blood lymphocytes/100 leukocytes 36 % 12-44 Blood monocytes/100 leukocytes 14 % 0-12 Automated blood eosinophils/100 leukocytes 2 % 0-10 Automated blood basophils/100 leukocytes 1 % 0-10 Blood neutrophils automated count (number/volume) 2.3 10*3 1.8-7.8 Blood lymphocytes automated count (number/volume) 1.8 10*3 1.0-4.0 Blood monocytes automated count (number/volume) 0.7 10*3 0.0-1.0 Automated eosinophil count 0.1 10*3/uL 0.0-0.3 Automated blood basophil count (count/volume) 0.0 10*3/uL 0.0-0.1 Comprehensive metabolic panel - 01/16/16 08:42 Serum or plasma sodium measurement (moles/volume) 139 mmol/L 135-145 Serum or plasma potassium measurement (moles/volume) 4.6 mmol/L 3.6-5.0 Serum or plasma chloride measurement (moles/volume) 110 mmol/L 98-107 Carbon dioxide 19 mmol/L 21-32 Serum or plasma anion gap determination (moles/volume) 10 mmol/L 5-14 Serum or plasma urea nitrogen measurement (mass/volume) 12 mg/dL 7-18 Serum or plasma creatinine measurement (mass/volume) 0.68 mg/dL 0.60-1.30 Serum or plasma urea nitrogen/creatinine mass ratio 18 NRG Serum or plasma creatinine measurement with calculation of estimated glomerular filtration rate > NRG Serum or plasma glucose measurement (mass/volume) 98 mg/dL 70-105 Serum or plasma calcium measurement (mass/volume) 9.1 mg/dL 8.5-10.1 Serum or plasma total bilirubin measurement (mass/volume) 0.3 mg/dL 0.1-1.0 Serum or plasma alkaline phosphatase measurement (enzymatic activity/volume) 58 U/L 40-136 Serum or plasma aspartate aminotransferase measurement (enzymatic activity/ volume) 21 U/L 5-34 Serum or plasma alanine aminotransferase measurement (enzymatic activity/volume ) 20 U/L 0-55 Serum or plasma protein measurement (mass/volume) 6.5 g/dL 6.4-8.2 Serum or plasma albumin measurement (mass/volume) 3.9 g/dL 3.2-4.5 Serum or plasma amylase measurement (enzymatic activity/volume) - 01/16/16 08: 42 Serum or plasma amylase measurement (enzymatic activity/volume) 54 U /L 25-125 Lipase - 01/16/16 08:42 Lipase 27 U/L 8-78 Serum or plasma ethanol measurement (mass/volume) - 01/16/16 08:42 Serum or plasma ethanol measurement (mass/volume) < mg/dL <10 Urine drug screening test - 01/16/16 08:46 Urine phencyclidine detection by screening method NEGATIVE NEGATIVE Urine benzodiazepines detection by screening method NEGATIVE NEGATIVE Urine cocaine detection NEGATIVE NEGATIVE Urine amphetamines detection by screening method NEGATIVE NEGATIVE Urine methamphetamine detection by screening method NEGATIVE NEGATIVE Urine cannabinoids detection by screening method POSITIVE NEGATIVE Urine opiates detection by screening method NEGATIVE NEGATIVE Urine barbiturates detection NEGATIVE NEGATIVE Screening urine tricyclic antidepressants detection NEGATIVE NEGATIVE Urine methadone detection by screening method NEGATIVE NEGATIVE Urine oxycodone detection NEGATIVE NEGATIVE Urine propoxyphene detection NEGATIVE NEGATIVE Urine buprenophrine screen NEGATIVE NEGATIVE Complete urinalysis with reflex to culture - 01/16/16 08:46 Urine color determination YELLOW NRG Urine clarity determination CLEAR NRG Urine pH measurement by test strip 6 5-9 Specific gravity of urine by test strip 1.020 1.016- 1.022 Urine protein assay by test strip, semi-quantitative NEGATIVE NEGATIVE Urine glucose detection by automated test strip NEGATIVE NEGATIVE Erythrocytes detection in urine sediment by light microscopy 2+ NEGATIVE Urine ketones detection by automated test strip NEGATIVE NEGATIVE Urine nitrite detection by test strip NEGATIVE NEGATIVE Urine total bilirubin detection by test strip NEGATIVE NEGATIVE Urine urobilinogen measurement by automated test strip (mass/volume) NORMAL NORMAL Urine leukocyte esterase detection by dipstick 1+ NEGATIVE Automated urine sediment erythrocyte count by microscopy (number/high power field) [HPF] NRG Automated urine sediment leukocyte count by microscopy (number/high power field ) [HPF] NRG Bacteria detection in urine sediment by light microscopy FEW NRG Squamous epithelial cells detection in urine sediment by light microscopy 10-25 NRG Crystals detection in urine sediment by light microscopy NONE NRG Casts detection in urine sediment by light microscopy NONE NRG Mucus detection in urine sediment by light microscopy NEGATIVE NRG Complete urinalysis with reflex to culture YES NRG Bacterial urine culture - 01/16/16 08:46 Bacterial urine culture [id number] NRG COLONY COUNT 10,000/ML - 100,000/ML NRG FREE TEXT ENTRY 2 MIXED GRAM POSITIVE MARGOT <10,000/ML NRG Complete blood count (CBC) with automated white blood cell (WBC) differential - 01/20/17 11:00 Blood leukocytes automated count (number/volume) 4.3 10*3/uL 4.3-11.0 Blood erythrocytes automated count (number/volume) 4.00 10*6/uL 4.35-5.85 Venous blood hemoglobin measurement (mass/volume) 13.7 g/dL 11.5-16.0 Blood hematocrit (volume fraction) 40 % 35-52 Automated erythrocyte mean corpuscular volume 101 [foz_us] 80-99 Automated erythrocyte mean corpuscular hemoglobin (mass per erythrocyte) 34 pg 25-34 Automated erythrocyte mean corpuscular hemoglobin concentration measurement ( mass/volume) 34 g/dL 32-36 Automated erythrocyte distribution width ratio 12.3 % 10.0-14.5 Automated blood platelet count (count/volume) 219 10*3/uL 130-400 Automated blood platelet mean volume measurement 9.1 [foz_us] 7.4-10.4 Automated blood neutrophils/100 leukocytes 60 % 42-75 Automated blood lymphocytes/100 leukocytes 26 % 12-44 Blood monocytes/100 leukocytes 13 % 0-12 Automated blood eosinophils/100 leukocytes 1 % 0-10 Automated blood basophils/100 leukocytes 1 % 0-10 Blood neutrophils automated count (number/volume) 2.6 10*3 1.8-7.8 Blood lymphocytes automated count (number/volume) 1.1 10*3 1.0-4.0 Blood monocytes automated count (number/volume) 0.5 10*3 0.0-1.0 Automated eosinophil count 0.0 10*3/uL 0.0-0.3 Automated blood basophil count (count/volume) 0.0 10*3/uL 0.0-0.1 Urine beta human chorionic gonadotropin (hCG) measurement - 01/20/17 11:00 Urine beta human chorionic gonadotropin (hCG) measurement NEGATIVE NEGATIVE Comprehensive metabolic panel - 01/20/17 11:00 Serum or plasma sodium measurement (moles/volume) 136 mmol/L 135-145 Serum or plasma potassium measurement (moles/volume) 3.9 mmol/L 3.6-5.0 Serum or plasma chloride measurement (moles/volume) 106 mmol/L 98-107 Carbon dioxide 22 mmol/L 21-32 Serum or plasma anion gap determination (moles/volume) 8 mmol/L 5-14 Serum or plasma urea nitrogen measurement (mass/volume) 9 mg/dL 7-18 Serum or plasma creatinine measurement (mass/volume) 0.75 mg/dL 0.60-1.30 Serum or plasma urea nitrogen/creatinine mass ratio 12 NRG Serum or plasma creatinine measurement with calculation of estimated glomerular filtration rate > NRG Serum or plasma glucose measurement (mass/volume) 128 mg/dL 70-105 Serum or plasma calcium measurement (mass/volume) 8.9 mg/dL 8.5-10.1 Serum or plasma total bilirubin measurement (mass/volume) 0.7 mg/dL 0.1-1.0 Serum or plasma alkaline phosphatase measurement (enzymatic activity/volume) 58 U/L 40-136 Serum or plasma aspartate aminotransferase measurement (enzymatic activity/ volume) 26 U/L 5-34 Serum or plasma alanine aminotransferase measurement (enzymatic activity/volume ) 20 U/L 0-55 Serum or plasma protein measurement (mass/volume) 6.4 g/dL 6.4-8.2 Serum or plasma albumin measurement (mass/volume) 3.9 g/dL 3.2-4.5 Complete urinalysis with reflex to culture - 01/20/17 11:17 Urine color determination YELLOW NRG Urine clarity determination CLEAR NRG Urine pH measurement by test strip 6 5-9 Specific gravity of urine by test strip 1.020 1.016- 1.022 Urine protein assay by test strip, semi-quantitative NEGATIVE NEGATIVE Urine glucose detection by automated test strip NEGATIVE NEGATIVE Erythrocytes detection in urine sediment by light microscopy 2+ NEGATIVE Urine ketones detection by automated test strip NEGATIVE NEGATIVE Urine nitrite detection by test strip NEGATIVE NEGATIVE Urine total bilirubin detection by test strip NEGATIVE NEGATIVE Urine urobilinogen measurement by automated test strip (mass/volume) NORMAL NORMAL Urine leukocyte esterase detection by dipstick NEGATIVE NEGATIVE Automated urine sediment erythrocyte count by microscopy (number/high power field) [HPF] NRG Automated urine sediment leukocyte count by microscopy (number/high power field ) RARE NRG Bacteria detection in urine sediment by light microscopy NEGATIVE NRG Squamous epithelial cells detection in urine sediment by light microscopy 2-5 NRG Crystals detection in urine sediment by light microscopy NONE NRG Casts detection in urine sediment by light microscopy NONE NRG Mucus detection in urine sediment by light microscopy SMALL NRG Complete urinalysis with reflex to culture NO NRG Encounters ACCT No. Visit Date/Time Discharge Status Pt. Type Provider Facility Loc./Unit Complaint [id number] 01/20/2017 10:31:00 01/20/2017 12:35:00 DIS Emergency SHAILESH REYES APRN [facility] ER LEFT LOWER SIDE PAIN [id number] 09/16/2016 09:30:00 09/16/2016 23:59:59 CLS Preadmit MARK SHEPPARD [facility] RAD SCREENING Z12.31 [id number] 08/23/2016 12:28:00 08/23/2016 13:29:00 DIS Emergency SHAILESH REYES APRN [facility] ER R SIDE RIB PAIN, FALL [id number] 01/16/2016 08:05:00 01/16/2016 10:31:00 DIS Emergency DAMIR CAMACHO DO [facility] ER ABD PAIN [id number] 02/23/2015 06:28:00 02/23/2015 08:28:00 DIS Emergency FANNIE JOHNSON, ANKIT Perea [facility] ER KNEE PAIN [id number] 02/23/2015 03:11:00 02/23/2015 03:45:00 DIS Emergency DAMIR CAMACHO DO [facility] ER LEFT KNEE PAIN-INJURY [id number] 01/06/2015 15:37:00 01/06/2015 16:13:00 DIS Emergency ALY JOHNSON, SHELLEY Solis [facility] ER BEE STING [id number] 05/22/2013 07:03:00 05/22/2013 09:34:00 DIS Emergency LANA JOHNSON, JOAQUIN Mercado [facility] ER BACK PAIN WITH BREATHING [id number] 12/25/2012 09:33:00 12/25/2012 11:59:00 DIS Emergency FERNANDO JOHNSON, SRIRAM Hearn [facility] ER L SIDE BACK RIB PAIN [id number] 01/07/2011 02:37:00 Document Registration [id number] 07/17/2010 13:35:00 Document Registration
--- NOTE | 2017-07-09 11:33 | ED Abdominal Pain ---
General Chief Complaint: Abdominal/GI Problems Stated Complaint: ABD PAIN Nursing Triage Note: Ambulatory to ED 2 with reports of abdominal pain, and nausea for the past 2 days. Patient reports history of diverticulitis, and has not had any recent issues with this. Sepsis Screen: No Definite Risk Source of Information: Patient Exam Limitations: No Limitations History of Present Illness Date Seen by Provider: Jul 09, 2017 Time Seen by Provider: 11:30 Initial Comments The patient is a 46-year-old white female known to me. She reports that 2 days ago she began to have abdominal discomfort and continuing pain. There is some nausea no vomiting. She has had some loose stools. The pain is located in the epigastric area and all above the umbilicus. She has a past history of diverticulitis but that has normally afflicted her in the left lower quadrant. She reports some sensation of heat waves but no clear fever or chills. Timing/Duration: 2-3 Days Severity/Quality: Moderate Location: Epigastric Radiation: No Radiation Associated Symptoms: Denies Symptoms Allergies and Home Medications Allergies Coded Allergies: codeine (Verified Adverse Reaction, Unknown, VOMITING, 07/09/17) Home Medications No Active Prescriptions or Reported Meds Patient Home Medication List Home Medication List Reviewed: Yes Review of Systems Constitutional: see HPI EENTM: No Symptoms Reported Respiratory: No Symptoms Reported Cardiovascular: No Symptoms Reported Gastrointestinal: See HPI, Abdomen Distended Genitourinary: No Symptoms Reported Musculoskeletal: no symptoms reported Skin: no symptoms reported Psychiatric/Neurological: No Symptoms Reported Endocrine: No Symptoms Reported Past Qcmhjns-Olpnxh-Kpxlvp Hx Patient Social History Alcohol Use: Regular Use Alcohol Beverage of Choice: Beer Recreational Drug Use: Yes Drug of Choice: THC Smoking Status: Current Everyday Smoker Type Used: Cigarettes 2nd Hand Smoke Exposure: Yes Recent Foreign Travel: No Contact w/Someone Who Travel: No Recent Infectious Disease Expo: No Recent Hopitalizations: No (DETOX 10 YEARS) Physical Abuse: No Sexual Abuse: No Mistreated: No Fear: No Immunizations Up To Date Tetanus Booster (TDap): Less than 5yrs PED Vaccines UTD: Yes Seasonal Allergies Seasonal Allergies: Yes Surgeries History of Surgeries: No Respiratory History of Respiratory Disorde: No Cardiovascular History of Cardiac Disorders: No Neurological History of Neurological Disord: No Reproductive System Hx Reproductive Disorders: Yes Female Reproductive Disorders: Denies Genitourinary History of Genitourinary Disor: No Gastrointestinal History of Gastrointestinal Di: Yes Gastrointestinal Disorders: Gastroesophageal Reflux, Diverticulosis Musculoskeletal History of Musculoskeletal Dis: No Endocrine History of Endocrine Disorders: No Cancer History of Cancer: No Psychosocial History of Psychiatric Problem: Yes Behavioral Health Disorders: Sleep Difficulties, Depression Suicide Risk Score: 0 Integumentary History of Skin or Integumenta: No Blood Transfusions History of Blood Disorders: No Physical Exam Vital Signs VS - Last 72 Hours, by Label 07/09/17 11:21 Temp 98.4 Pulse 71 Resp 18 B/P (MAP) 133/95 (108) Pulse Ox 97 O2 Delivery Room Air Capillary Refill : Less Than 3 Seconds General Appearance: mild distress, moderate distress HEENT: normal ENT inspection Neck: full range of motion Respiratory: chest non-tender, lungs clear, normal breath sounds, no respiratory distress, no accessory muscle use Cardiovascular: normal peripheral pulses, regular rate, rhythm, no edema, no gallop, no JVD, no murmur Gastrointestinal: abnormal bowel sounds (somewhat hypoactive), tenderness ( without guarding or rebound) Back: normal inspection 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: 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 [employer] II-XII nml as tested, no motor/sensory deficits, alert, normal mood/affect, oriented x 3 Skin: normal color, warm/dry Lymphatic: no adenopathy Progress/Results/Core Measures Results/Orders Lab Results Laboratory Tests Test 07/09/17 11:30 07/09/17 11:39 Range/Units Urine Color YELLOW Urine Clarity CLEAR Urine pH 6 5-9 Urine Specific Reading 1.020 1.016-1.022 Urine Protein NEGATIVE NEGATIVE Urine Glucose (UA) NEGATIVE NEGATIVE Urine Ketones NEGATIVE NEGATIVE Urine Nitrite NEGATIVE NEGATIVE Urine Bilirubin NEGATIVE NEGATIVE Urine Urobilinogen NORMAL NORMAL MG/DL Urine Leukocyte Esterase NEGATIVE NEGATIVE Urine RBC (Auto) 3+ H NEGATIVE Urine RBC 2-5 H /HPF Urine WBC 0-2 /HPF Urine Squamous Epithelial Cells >50 H /HPF Urine Renal Epithelial Cells NONE /HPF Urine Crystals NONE /LPF Urine Bacteria TRACE /HPF Urine Casts NONE /LPF Urine Mucus NEGATIVE /LPF Urine Culture Indicated NO White Blood Count 7.0 4.3-11.0 10^3/uL Red Blood Count 3.82 L 4.35-5.85 10^6/uL Hemoglobin 13.3 11.5-16.0 G/DL Hematocrit 39 35-52 % Mean Corpuscular Volume 102 H 80-99 FL Mean Corpuscular Hemoglobin 35 H 25-34 PG Mean Corpuscular Hemoglobin Concent 34 32-36 G/DL Red Cell Distribution Width 12.7 10.0-14.5 % Platelet Count 268 130-400 10^3/uL Mean Platelet Volume 9.1 7.4-10.4 FL Neutrophils (%) (Auto) 63 42-75 % Lymphocytes (%) (Auto) 27 12-44 % Monocytes (%) (Auto) 8 0-12 % Eosinophils (%) (Auto) 1 0-10 % Basophils (%) (Auto) 0 0-10 % Neutrophils # (Auto) 4.4 1.8-7.8 X 10^3 Lymphocytes # (Auto) 1.9 1.0-4.0 X 10^3 Monocytes # (Auto) 0.6 0.0-1.0 X 10^3 Eosinophils # (Auto) 0.1 0.0-0.3 10^3/uL Basophils # (Auto) 0.0 0.0-0.1 10^3/uL Sodium Level 138 135-145 MMOL/L Potassium Level 4.5 3.6-5.0 MMOL/L Chloride Level 106 98-107 MMOL/L Carbon Dioxide Level 24 21-32 MMOL/L Anion Gap 8 5-14 MMOL/L Blood Urea Nitrogen 12 7-18 MG/DL Creatinine 0.72 0.60-1.30 MG/DL Estimat Glomerular Filtration Rate > 60 BUN/Creatinine Ratio 17 Glucose Level 94 70-105 MG/DL Calcium Level 8.7 8.5-10.1 MG/DL Total Bilirubin 0.4 0.1-1.0 MG/DL Aspartate Amino Transf (AST/SGOT) 19 5-34 U/L Alanine Aminotransferase (ALT/SGPT) 18 0-55 U/L Alkaline Phosphatase 55 40-136 U/L Total Protein 6.8 6.4-8.2 GM/DL Albumin 3.9 3.2-4.5 GM/DL My Orders Orders - JOAQUIN SCHWARTZ MD Cbc With Automated Diff (07/09/17 10:58) Comprehensive Metabolic Panel (07/09/17 10:58) Ua Culture If Indicated (07/09/17 10:58) Vital Signs/I&O Vital Sign - Last 12Hours 07/09/17 11:21 Temp 98.4 Pulse 71 Resp 18 B/P (MAP) 133/95 (108) Pulse Ox 97 O2 Delivery Room Air Blood Pressure Mean: 108 Departure Communication (Admissions) Progress Notes Examination of previous studies was performed. The most recent CT scan of the abdomen was done in January 2017. This showed extensive and rather universal diverticulosis including the epigastrium where she has the present complaints. This was shared with her. Impression Impression: Primary Impression: diverticulitis Disposition: HOME, SELF-CARE Condition: Stable/Unchanged Departure-Patient Inst. Decision time for Depature: 12:48 Referrals: [facility] (PCP/Family) Primary Care Physician Patient Instructions: Diverticulitis (DC) Add. Discharge Instructions: All discharge instructions reviewed with patient and/or family. Voiced understanding. Take frequent small feedings. If symptoms increase return to the emergency room. If they continue at about the same level see your provider Scripts No Active Prescriptions or Reported Meds JOAQUIN SCHWARTZ MD Jul 09, 2017 11:33
[2017-07-09 11:39] LABS: BILIRUBIN,URINE NEGATIVE (NEGATIVE); CLARITY,URINE CLEAR; COLOR,URINE YELLOW; GLUCOSE, URINE (UA) NEGATIVE (NEGATIVE); KETONES,URINE NEGATIVE (NEGATIVE); LEUKOCYTE ESTERASE ,URINE NEGATIVE (NEGATIVE); NITRITE,URINE NEGATIVE (NEGATIVE); PH,URINE 6 (5-9); PROTEIN,URINE NEGATIVE (NEGATIVE); UROBILINOGEN,URINE NORMAL (NORMAL)
[2017-07-09 11:49] LABS: BASOPHILS % (AUTO) 0 % (0-10); EOSINOPHILS # (AUTO) 0.1 10^3/uL (0.0-0.3); EOSINOPHILS % (AUTO) 1 % (0-10); HEMATOCRIT 39 % (35-52); HEMOGLOBIN 13.3 G/DL (11.5-16.0); LYMPHOCYTES # (AUTO) 1.9 X 10^3 (1.0-4.0); LYMPHOCYTES % (AUTO) 27 % (12-44); MEAN CORPUSCULAR HEMOGLOBIN 35 PG (25-34); MEAN CORPUSCULAR HGB CONC 34 G/DL (32-36); MEAN CORPUSCULAR VOLUME 102 FL (80-99); MEAN PLATELET VOLUME 9.1 FL (7.4-10.4); MONOCYTES # (AUTO) 0.6 X 10^3 (0.0-1.0); MONOCYTES % (AUTO) 8 % (0-12); NEUTROPHILS # (AUTO) 4.4 X 10^3 (1.8-7.8); NEUTROPHILS % (AUTO) 63 % (42-75); PLATELET COUNT 268 10^3/uL (130-400); RED BLOOD COUNT 3.82 10^6/uL (4.35-5.85); RED CELL DISTRIBUTION WIDTH 12.7 % (10.0-14.5)
[2017-07-09 12:06] LABS: ALANINE AMINOTRANSFERASE 18 U/L (0-55); ALBUMIN 3.9 GM/DL (3.2-4.5); ALKALINE PHOSPHATASE 55 U/L (40-136); BILIRUBIN,TOTAL 0.4 MG/DL (0.1-1.0); BUN/CREATININE RATIO 17; CALCIUM 8.7 MG/DL (8.5-10.1); CARBON DIOXIDE 24 MMOL/L (21-32); CHLORIDE 106 MMOL/L (98-107); CREATININE SERUM 0.72 MG/DL (0.60-1.30); GFR ESTIMATED > 60; GLUCOSE 94 MG/DL (70-105); POTASSIUM 4.5 MMOL/L (3.6-5.0); SODIUM 138 MMOL/L (135-145); TOTAL PROTEIN 6.8 GM/DL (6.4-8.2)
[2017-07-09 12:07] LABS: BACTERIA,URINE TRACE /HPF; SQUAMOUS EPITHELIAL CELL,UR >50 /HPF; WBC,URINE 0-2 /HPF
[2017-07-09 13:05] VITALS: BP 130/76
== END 2017-07-09 13:05 | disposition home or self-care (01) ==
LOC: EDUNIT# 10:40 → ER 10:42
DX: K57.92 Diverticulitis of intestine, part unspecified, without perforation or abscess without bleeding (principal); K21.9 Gastro-esophageal reflux disease without esophagitis; F32.9 Major depressive disorder, single episode, unspecified; F12.10 Cannabis abuse, uncomplicated; F17.210 Nicotine dependence, cigarettes, uncomplicated; Z87.19 Personal history of other diseases of the digestive system; Z88.5 Allergy status to narcotic agent
CPT/HCPCS: 36415; 80053; 81000; 85025

== ENCOUNTER 2017-09-30 21:41 | Emergency (ER) | payer SELFPAY ==
[~2017-09-30] VITALS: Ht 175.3 cm; Wt 92.5 kg
--- OUTSIDE RECORDS SUMMARY | 2017-09-30 21:46 | XMS REPORT ---
Author Author CONSTANTIN LAM [facility] Address Unknown Care Team Providers Care Customer Assistance Representative Name Role Phone CONSTANTIN LAM Unavailable PROBLEMS Type Condition ICD9-CM Code [id number] Code Onset Dates Condition Status SNOMED Code Problem Diverticulosis of intestine without bleeding, unspecified intestinal tract location K57.90 Active 97782342 Problem Anxiety F41.9 Active 56592381 Problem Insomnia G47.00 Active 956833517 Problem Depression F32.9 Active 70402741 Problem COPD (chronic obstructive pulmonary disease) J44.9 Active 83657462 Problem Psoriasis L40.9 Active 2109292 ALLERGIES Substance Reaction Event Type Date Status Codeine Sulfate nausea and vomiting Drug Allergy Dec, Active ENCOUNTERS Encounter Location Date Diagnosis [facility] [id number] [place] [address] Jul, Strain of lumbar region, initial encounter S39.012A [facility] [address] [address] Jul, Hospital discharge follow-up Z09 and Diverticulosis of intestine without bleeding, unspecified intestinal tract location K57.90 [facility] [id number] [place] [address] [phone] Dec, Dental examination Z01.20 [facility] [id number] [place] [address] [id number] Dec, Dental examination Z01.20 [facility] [id number] [place] [address] [phone] Nov, Dental examination Z01.20 [facility] [id number] [place] [address] [phone] September, Encounter for dental examination Z01.20 [facility] [id number] [place] [address]- [address] September, Routine gynecological examination Z01.419 and Screening cholesterol level Z13.220 [place] [address] [address] September, Routine gynecological examination Z01.419 and Screening cholesterol level Z13.220 [facility] [address] [phone] Jul, Dental examination Z01.20 and Dental caries K02.9 [place] [address] [address]- [address] 07 Jan, 2016 Left lower quadrant pain R10.32 [place] [address] [address]- 6978 10 Jun, 2015 Anxiety F41.9 and PTSD (post-traumatic stress disorder) F43.[address] [address]- [address] 10 Jun, 2015 Psoriasis L40.9 ; Depression F32.9 ; Insomnia G47.00 and Anxiety F41.9 [place] [address] [address] Apr, [place] [address] [address] Apr, Psoriasis L40.9 and COPD (chronic obstructive pulmonary disease) J44.9 [place] [address] [address]- 6[address] Apr, Generalized psoriasis L40.1 [place] [address] [address]- [address] Mar, Left tibial fracture S82.202A [place] [address] [address]- 6[address] Feb, Knee pain M25.569 [place] [address] [address]- 7[address] Feb, Knee pain, left M25.562 [facility] [address] [address] Feb, [place] [id number] [place] [address] 338266- 4[address] 05 Feb, 2015 Depression 311 and Insomnia 780.52 [place] [id number] [place] [address] 50823- 5859 17 Jan, 2015 Depression 311 and Insomnia 780.52 [place] [id number] [place] [address] 43962- 6197 14 Jan, 2015 PTSD (post-traumatic stress disorder) 309.81 ; Generalized anxiety disorder 300.02 ; Polysubstance abuse 305.90 and No condition on Huson II V71.09 [place] [address] [place] [address] 23596- 4378 10 Jan, 2015 Alcohol dependence 303.90 ; Major depression 296.20 ; Generalized anxiety disorder 300.02 and No condition on Huson II V71.09 [place] [address] [place] [address] 60163- 1090 Oct, Back pain 724.5 [place] [id number] [place] [address] 32[address]- 60[address] Feb, [place] [address], [place] [address] Feb, IMMUNIZATIONS No Known Immunizations SOCIAL HISTORY Never Assessed REASON FOR VISIT restorative PLAN OF CARE Activity Details Follow Up prn Reason:fillings VITAL SIGNS Blood pressure systolic 126 mmHg 2016-12-30 Blood pressure diastolic 78 mmHg 2016-12-30 MEDICATIONS Unknown Medications RESULTS No Results PROCEDURES Procedure Date Ordered Result Body Site RESIN COMPOS - 2 SURFACES ANTERIOR Dec 30, 2016 INSTRUCTIONS MEDICATIONS ADMINISTERED No Known Medications MEDICAL (GENERAL) HISTORY Type Description Date Medical History diverticulitis Medical History [facility] Hospitalization History Diverticulitis 2012
--- OUTSIDE RECORDS SUMMARY | 2017-09-30 21:47 | XMS REPORT ---
Author Author ALCIDES FAROOQ [facility] Address [address] [place] [address] Phone Unavailable Care Team Providers Care Inspector Rough Castings Name Role Phone ALCIDES FAROOQ Unavailable Unavailable PROBLEMS Type Condition ICD9-CM Code MSS07-NS Code Onset Dates Condition Status SNOMED Code Problem Diverticulosis of intestine without bleeding, unspecified intestinal tract location K57.90 Active 73757994 Problem Anxiety F41.9 Active 81515033 Problem Insomnia G47.00 Active 075817769 Problem Depression F32.9 Active 75650499 Problem COPD (chronic obstructive pulmonary disease) J44.9 Active 65466862 Problem Psoriasis L40.9 Active 9190016 ALLERGIES Substance Reaction Event Type Date Status Codeine Sulfate nausea and vomiting Drug Allergy Nov, Active ENCOUNTERS Encounter Location Date Diagnosis [facility] [id number] [place] [address] [phone]- [address] Jul, Strain of lumbar region, initial encounter S39.012A [facility] [address] [address] Jul, Hospital discharge follow-up Z09 and Diverticulosis of intestine without bleeding, unspecified intestinal tract location K57.90 [facility] [id number] [place] [address] [phone] Dec, Dental examination Z01.20 [facility] [address] [place] [address] [phone] Dec, Dental examination Z01.20 [facility] [id number] [place] [address] [phone] Nov, Dental examination Z01.20 [facility] [id number] [place] [address] [phone] September, Encounter for dental examination Z01.20 [facility] [id number] [place] [address] 25545- 6185 September, Routine gynecological examination Z01.419 and Screening cholesterol level Z13.220 [place] [address] [address]- [address] September, Routine gynecological examination Z01.419 and Screening cholesterol level Z13.220 [facility] [address] [phone] Jul, Dental examination Z01.20 and Dental caries K02.9 [place] [address] [address]- [address] 07 Jan, 2016 Left lower quadrant pain R10.32 [place] [address] [address]79- [address] 10 Jun, 2015 Anxiety F41.9 and PTSD (post-traumatic stress disorder) F43.[address] [address]- [address] 10 Jun, 2015 Psoriasis L40.9 ; Depression F32.9 ; Insomnia G47.00 and Anxiety F41.9 [place] [address] 9[address]65- 2865 Apr, [place] [address] 48[address]- [address]65 Apr, Psoriasis L40.9 and COPD (chronic obstructive pulmonary disease) J44.[address] [address]- [address] Apr, Generalized psoriasis L40.1 [place] [address] 27056- 2454 Mar, Left tibial fracture S82.202A [place] [address] 02[address]- 9570 Feb, Knee pain M25.569 [place] [address] 59[address]- 3412 Feb, Knee pain, left M25.562 [facility] [address] [address] Feb, [place] [address] [place] [address] [phone]- 1810 05 Feb, 2015 Depression 311 and Insomnia 780.52 [place] [address] [place] [address] 895645- 2164 17 Jan, 2015 Depression 311 and Insomnia 780.52 [place] [address] [place] [address] [phone]- 7468 14 Jan, 2015 PTSD (post-traumatic stress disorder) 309.81 ; Generalized anxiety disorder 300.02 ; Polysubstance abuse 305.90 and No condition on Parks[place] II V71.09 [place] [address] [place] [address] 12103- 7800 10 Jan, 2015 Alcohol dependence 303.90 ; Major depression 296.20 ; Generalized anxiety disorder 300.02 and No condition on Parksley II V71.09 [place] [address] [place] [address] 86854- 7407 Oct, Back pain 724.5 [place] [address] [place] [address] 6[address]9- 9255 Feb, [place] [address] [address] Feb, IMMUNIZATIONS No Known Immunizations SOCIAL HISTORY Never Assessed REASON FOR VISIT SRP PLAN OF CARE Activity Details Follow Up licha Reason:srp right side VITAL SIGNS Blood pressure systolic 113 mmHg 2016-11-11 Blood pressure diastolic 68 mmHg 2016-11-11 MEDICATIONS Unknown Medications RESULTS No Results PROCEDURES Procedure Date Ordered Result Body Site Periodontal scaling and root November 11, 2016 Periodontal scaling and root November 11, 2016 Billing Notes on claim November 11, 2016 INSTRUCTIONS MEDICATIONS ADMINISTERED No Known Medications MEDICAL (GENERAL) HISTORY Type Description Date Medical History diverticulitis Medical History [facility] Hospitalization History Diverticulitis 2012
--- OUTSIDE RECORDS SUMMARY | 2017-09-30 21:48 | XMS REPORT | Continuity of Care Document ---
Author Author [facility] Organization [facility] Address Unknown Phone Unavailable Allergies Active Description Code Type Severity Reaction Onset Reported/Identified Relationship to Patient Clinical Status Yes No Known Drug Allergies [id number] Drug Allergy Unknown N/A 07/17/2010 Yes codeine [id number] Drug Allergy Unknown VOMITING 07/09/2017 Medications There is no data. Problems Date [...] 01/06/2015 ALY JOHNSON, SHELLEY Solis Ot V06.1 [id number], COMBINED [ 02/23/2015 DAMIR CAMACHO DO Ot [...] W AND EXPSR TO ENVIRON TOBACCO SMO 07/09/2017 JOAQUIN SCHWARTZ MD Ot F12.10 CANNABIS ABUSE, UNCOMPLICATED 07/09/2017 JOAQUIN SCHWARTZ MD Ot F17.210 NICOTINE DEPENDENCE, CIGARETTES, UNCOMPL 07/09/2017 JOAQUIN SCHWARTZ MD Ot F32.9 MAJOR DEPRESSIVE DISORDER, SINGLE EPISOD 07/09/2017 JOAQUIN SCHWARTZ MD Ot K21.9 GASTRO-ESOPHAGEAL REFLUX DISEASE WITHOUT 07/09/2017 JOAQUIN SCHWARTZ MD Ot K57.92 DVTRCLI OF INTEST, PART UNSP, W/O PERF O 07/09/2017 JOAQUIN SCHWARTZ MD Ot R10.13 EPIGASTRIC PAIN 07/09/2017 JOAQUIN SCHWARTZ MD Ot Z87.19 PERSONAL HISTORY OF OTHER DISEASES OF TH 07/09/2017 JOAQUIN SCHWARTZ MD Ot Z88.5 ALLERGY STATUS TO NARCOTIC AGENT STATUS 07/13/2017 JOAQUIN SCHWARTZ MD Ot F12.10 CANNABIS ABUSE, UNCOMPLICATED 07/13/2017 JOAQUIN SCHWARTZ MD Ot F17.210 NICOTINE DEPENDENCE, CIGARETTES, UNCOMPL 07/13/2017 JOAQUIN SCHWARTZ MD Ot F32.9 MAJOR DEPRESSIVE DISORDER, SINGLE EPISOD 07/13/2017 JOAQUIN SCHWARTZ MD Ot K21.9 GASTRO-ESOPHAGEAL REFLUX DISEASE WITHOUT 07/13/2017 JOAQUIN SCHWARTZ MD Ot K57.92 DVTRCLI OF INTEST, PART UNSP, W/O PERF O 07/13/2017 JOAQUIN SCHWARTZ MD Ot R10.13 EPIGASTRIC PAIN 07/13/2017 JOAQUIN SCHWARTZ MD Ot Z87.19 PERSONAL HISTORY OF OTHER DISEASES OF TH 07/13/2017 JOAQUIN SCHWARTZ MD Ot Z88.5 ALLERGY STATUS TO NARCOTIC AGENT STATUS 08/11/2017 JOAQUIN SCHWARTZ MD, Ot F12.10 CANNABIS ABUSE, UNCOMPLICATED 08/11/2017 JOAQUIN SCHWARTZ MD Ot F17.210 NICOTINE DEPENDENCE, CIGARETTES, UNCOMPL 08/11/2017 JOAQUIN SCHWARTZ MD Ot F32.9 MAJOR DEPRESSIVE DISORDER, SINGLE EPISOD 08/11/2017 JOAQUIN SCHWARTZ MD Ot K21.9 GASTRO-ESOPHAGEAL REFLUX DISEASE WITHOUT 08/11/2017 JOAQUIN SCHWARTZ MD Ot K57.92 DVTRCLI OF INTEST, PART UNSP, W/O PERF O 08/11/2017 JOAQUIN SCHWARTZ MD Ot R10.13 EPIGASTRIC PAIN 08/11/2017 JOAQUIN SCHWARTZ MD Ot Z87.19 PERSONAL HISTORY OF OTHER DISEASES OF TH 08/11/2017 JOAQUIN SCHWARTZ MD Ot Z88.5 ALLERGY STATUS TO NARCOTIC AGENT STATUS Procedures There is no data. Results Test [...] culture - 01/16/16 08:46 Bacterial urine culture [id number] NRG COLONY COUNT 10,000/ML - 100,000/ML NRG FREE TEXT ENTRY 2 MIXED GRAM POSITIVE MARGOT <10,000/ML NRG Pap Lb, rfx HPV ASCU - 09/02/16 16:41 DIAGNOSIS: Comment Specimen adequacy: Comment Clinician provided ICD10: Comment Performed by: Comment . . Pathologist provided ICD10: Comment Note: Comment . Comment Genital Culture, Routine - 09/02/16 16:41 Genital Culture, Routine Note CBC With Differential/Platelet - 09/03/16 08:03 WBC 5.1 x10E3/uL 3.4-10.8 RBC 4.31 x10E6/uL 3.77-5.28 Hemoglobin 14.8 g/dL 11.1-15.9 Hematocrit 43.7 % 34.0-46.6 MCV 101 fL 79-97 MCH 34.3 pg 26.6-33.0 MCHC 33.9 g/dL 31.5-35.7 RDW 12.4 % 12.3-15.4 Platelets 275 x10E3/uL 150-379 Neutrophils 47 % Lymphs 39 % Monocytes 11 % Eos 3 % Basos 0 % Neutrophils (Absolute) 2.4 x10E3/uL 1.4-7.0 Lymphs (Absolute) 2.0 x10E3/uL 0.7-3.1 Monocytes(Absolute) 0.6 x10E3/uL 0.1-0.9 Eos (Absolute) 0.1 x10E3/uL 0.0-0.4 Baso (Absolute) 0.0 x10E3/uL 0.0-0.2 Immature Granulocytes 0 % Immature Grans (Abs) 0.0 x10E3/uL 0.0-0.1 Comp. Metabolic Panel (14) - 09/03/16 08:03 Glucose, Serum 83 mg/dL 65-99 BUN 13 mg/dL 6-24 Creatinine, Serum 0.63 mg/dL 0.57-1.00 eGFR If NonAfricn Am 110 mL/min/1.73 >59 eGFR If Africn Am 127 mL/min/1.73 >59 BUN/Creatinine Ratio 21 9-23 Sodium, Serum 142 mmol/L 134-144 Potassium, Serum 4.7 mmol/L 3.5-5.2 Chloride, Serum 103 mmol/L 96-106 Carbon Dioxide, Total 22 mmol/L 18-29 Calcium, Serum 9.0 mg/dL 8.7-10.2 Protein, Total, Serum 6.9 g/dL 6.0-8.5 Albumin, Serum 4.2 g/dL 3.5-5.5 Globulin, Total 2.7 g/dL 1.5-4.5 A/G Ratio 1.6 1.2-2.2 Bilirubin, Total 0.3 mg/dL 0.0-1.2 Alkaline Phosphatase, S 58 IU/L 39-117 AST (SGOT) 12 IU/L 0-40 ALT (SGPT) 10 IU/L 0-32 Lipid Panel - 09/03/16 08:03 Cholesterol, Total 203 mg/dL 100-199 Triglycerides 190 mg/dL 0-149 HDL Cholesterol 52 mg/dL >39 VLDL Cholesterol Willie 38 mg/dL 5-40 LDL Cholesterol Calc 113 mg/dL 0-99 Complete blood count (CBC) with automated white [...] urinalysis with reflex to culture NO NRG Complete urinalysis with reflex to culture - 07/09/17 11:30 Urine color determination YELLOW NRG Urine clarity determination CLEAR NRG Urine pH measurement by test strip 6 5-9 Specific gravity of urine by test strip 1.020 1.016- 1.022 Urine protein assay by test strip, semi-quantitative NEGATIVE NEGATIVE Urine glucose detection by automated test strip NEGATIVE NEGATIVE Erythrocytes detection in urine sediment by light microscopy 3+ NEGATIVE Urine ketones detection by automated test [...] detection in urine sediment by light microscopy TRACE NRG Squamous epithelial cells detection in urine sediment by light microscopy >50 NRG Crystals detection in urine sediment by light microscopy NONE NRG Casts detection in urine sediment by light microscopy NONE NRG Mucus detection in urine sediment by light microscopy NEGATIVE NRG Complete urinalysis with reflex to culture NO NRG Renal epithelial cells detection in urine sediment by light microscopy NONE NRG Complete blood count (CBC) with automated white blood cell (WBC) differential - 07/09/17 11:39 Blood leukocytes automated count (number/volume) 7.0 10*3/uL 4.3-11.0 Blood erythrocytes automated count (number/volume) 3.82 10*6/uL 4.35-5.85 Venous blood hemoglobin measurement (mass/volume) 13.3 g/dL 11.5-16.0 Blood hematocrit (volume fraction) 39 % 35-52 Automated erythrocyte mean corpuscular volume 102 [foz_us] 80-99 Automated erythrocyte mean corpuscular hemoglobin (mass per erythrocyte) 35 pg 25-34 Automated erythrocyte mean corpuscular hemoglobin concentration measurement ( mass/volume) 34 g/dL 32-36 Automated erythrocyte distribution width ratio 12.7 % 10.0-14.5 Automated blood platelet count (count/volume) 268 10*3/uL 130-400 Automated blood platelet mean volume measurement 9.1 [foz_us] 7.4-10.4 Automated blood neutrophils/100 leukocytes 63 % 42-75 Automated blood lymphocytes/100 leukocytes 27 % 12-44 Blood monocytes/100 leukocytes 8 % 0-12 Automated blood eosinophils/100 leukocytes 1 % 0-10 Automated blood basophils/100 leukocytes 0 % 0-10 Blood neutrophils automated count (number/volume) 4.4 10*3 1.8-7.8 Blood lymphocytes automated count (number/volume) 1.9 10*3 1.0-4.0 Blood monocytes automated count (number/volume) 0.6 10*3 0.0-1.0 Automated eosinophil count 0.1 10*3/uL 0.0-0.3 Automated blood basophil count (count/volume) 0.0 10*3/uL 0.0-0.1 Comprehensive metabolic panel - 07/09/17 11:39 Serum or plasma sodium measurement (moles/volume) 138 mmol/L 135-145 Serum or plasma potassium measurement (moles/volume) 4.5 mmol/L 3.6-5.0 Serum or plasma chloride measurement (moles/volume) 106 mmol/L 98-107 Carbon dioxide 24 mmol/L 21-32 Serum or plasma anion gap determination (moles/volume) 8 mmol/L 5-14 Serum or plasma urea nitrogen measurement (mass/volume) 12 mg/dL 7-18 Serum or plasma creatinine measurement (mass/volume) 0.72 mg/dL 0.60-1.30 Serum or plasma urea nitrogen/creatinine mass ratio 17 NRG Serum or plasma creatinine measurement with calculation of estimated glomerular filtration rate > NRG Serum or plasma glucose measurement (mass/volume) 94 mg/dL 70-105 Serum or plasma calcium measurement (mass/volume) 8.7 mg/dL 8.5-10.1 Serum or plasma total bilirubin measurement (mass/volume) 0.4 mg/dL 0.1-1.0 Serum or plasma alkaline phosphatase measurement (enzymatic activity/volume) 55 U/L 40-136 Serum or plasma aspartate aminotransferase measurement (enzymatic activity/ volume) 19 U/L 5-34 Serum or plasma alanine aminotransferase measurement (enzymatic activity/volume ) 18 U/L 0-55 Serum or plasma protein measurement (mass/volume) 6.8 g/dL 6.4-8.2 Serum or plasma albumin measurement (mass/volume) 3.9 g/dL 3.2-4.5 THYROID ANALYZER - 07/13/17 11:24 TSH 1.44 mIU/L NRG A1C - 07/13/17 11:24 HEMOGLOBIN A1c 5.0 % of total Hgb <5.7 Encounters ACCT No. Visit Date/Time Discharge Status Pt. Type Provider Facility Loc./Unit Complaint [id number] 07/09/2017 10:42:00 07/09/2017 13:05:00 DIS Outpatient LANA JOHNSON, JOAQUIN Mercado [facility] ER ABD PAIN [id number] 01/20/2017 10:31:00 01/20/2017 12:35:00 DIS Emergency SHAILESH REYES APRN [facility] ER LEFT LOWER SIDE PAIN [id number] 09/16/2016 09:30:00 09/16/2016 23:59:59 CLS Preadmit MARK SHEPPARDP [facility] RAD SCREENING Z12.31 [id number] 08/23/2016 12:28:00 08/23/2016 13:29:00 DIS Emergency SHAILESH ERYES APRN [facility] ER R SIDE RIB PAIN, FALL [id number] 01/16/2016 08:05:00 01/16/2016 10:31:00 DIS Emergency DOUG DO, DAMIR Mercado [facility] ER ABD PAIN [id number] 02/23/2015 06:28:00 02/23/2015 08:28:00 DIS Emergency FANNIE JOHNSON, ANKIT S [facility] ER KNEE PAIN [id number] 02/23/2015 03:11:00 02/23/2015 03:45:00 DIS Emergency DOUG , DAMIR Mercado [facility] ER LEFT KNEE PAIN-INJURY [id number] 01/06/2015 15:37:00 01/06/2015 16:13:00 DIS Emergency ALY JOHNSON, SHELLEY T [facility] ER BEE STING [id number] 05/22/2013 07:03:00 05/22/2013 09:34:00 DIS Emergency LANA JOHNSON, JOAQUIN Mercado [facility] ER BACK PAIN WITH BREATHING [id number] 12/25/2012 09:33:00 12/25/2012 11:59:00 DIS Emergency FERNANDO JOHNSON, SRIRAM Hearn [facility] ER L SIDE BACK RIB PAIN [id number] 01/07/2011 02:37:00 Document Registration [id number] 07/17/2010 13:35:00 Document Registration [id number] 09/04/2016 15:10:00 Document Registration [id number] 09/04/2016 08:07:00 Document Registration [id number] 07/30/2017 09:40:00 07/30/2017 23:59:59 CLS Outpatient MARK SHEPPARD [facility] [id number] 07/13/2017 11:00:00 Document Registration [id number] 09/05/2016 10:09:00 Document Registration
[2017-09-30] MEDS ORDERED: ASPIRIN 81 MG CHEW (CHILDREN'S ASA) PO ONE (22:00)
[2017-09-30] MEDS ORDERED: NITROGLYCERIN 0.4 MG SL TABS BTL 25'S SL PRN (22:00)
[2017-09-30 22:08] LABS: BASOPHILS % (AUTO) 0 % (0-10); EOSINOPHILS # (AUTO) 0.1 10^3/uL (0.0-0.3); EOSINOPHILS % (AUTO) 1 % (0-10); HEMATOCRIT 41 % (35-52); HEMOGLOBIN 13.9 G/DL (11.5-16.0); LYMPHOCYTES # (AUTO) 1.9 X 10^3 (1.0-4.0); LYMPHOCYTES % (AUTO) 33 % (12-44); MEAN CORPUSCULAR HEMOGLOBIN 35 PG (25-34); MEAN CORPUSCULAR HGB CONC 34 G/DL (32-36); MEAN CORPUSCULAR VOLUME 102 FL (80-99); MEAN PLATELET VOLUME 8.8 FL (7.4-10.4); MONOCYTES # (AUTO) 0.6 X 10^3 (0.0-1.0); MONOCYTES % (AUTO) 11 % (0-12); NEUTROPHILS # (AUTO) 3.3 X 10^3 (1.8-7.8); NEUTROPHILS % (AUTO) 55 % (42-75); PLATELET COUNT 256 10^3/uL (130-400); RED BLOOD COUNT 4.02 10^6/uL (4.35-5.85); RED CELL DISTRIBUTION WIDTH 12.6 % (10.0-14.5); WHITE BLOOD COUNT 5.9 10^3/uL (4.3-11.0)
[2017-09-30 22:20] LABS: PROTHROMBIN TIME PATIENT 12.6 SEC (12.2-14.7)
[2017-09-30 22:28] LABS: ALANINE AMINOTRANSFERASE 24 U/L (0-55); ALBUMIN 4.2 GM/DL (3.2-4.5); ALKALINE PHOSPHATASE 58 U/L (40-136); AMYLASE 45 U/L (25-125); BILIRUBIN,TOTAL 0.6 MG/DL (0.1-1.0); BUN/CREATININE RATIO 18; CALCIUM 9.9 MG/DL (8.5-10.1); CARBON DIOXIDE 24 MMOL/L (21-32); CHLORIDE 105 MMOL/L (98-107); CREATINE KINASE 66 U/L (29-168); CREATININE SERUM 0.79 MG/DL (0.60-1.30); GFR ESTIMATED > 60; GLUCOSE 109 MG/DL (70-105); LIPASE 23 U/L (8-78); POTASSIUM 3.7 MMOL/L (3.6-5.0); SODIUM 142 MMOL/L (135-145); TOTAL PROTEIN 7.1 GM/DL (6.4-8.2)
[2017-09-30 22:34] LABS: BILIRUBIN,URINE NEGATIVE (NEGATIVE); CLARITY,URINE CLEAR; COLOR,URINE YELLOW; GLUCOSE, URINE (UA) NEGATIVE (NEGATIVE); KETONES,URINE NEGATIVE (NEGATIVE); LEUKOCYTE ESTERASE ,URINE 1+ (NEGATIVE); NITRITE,URINE NEGATIVE (NEGATIVE); PH,URINE 7 (5-9); PROTEIN,URINE NEGATIVE (NEGATIVE); UROBILINOGEN,URINE NORMAL (NORMAL)
[2017-09-30] MEDS ORDERED: methylPREDNISolone 125 MG (Solu-MEDROL) VIAL IV STA (22:35)
[2017-09-30 22:43] LABS: BACTERIA,URINE FEW /HPF; SQUAMOUS EPITHELIAL CELL,UR 25-50 /HPF; WBC,URINE 0-2 /HPF
[2017-09-30] MEDS ORDERED: RT-ALBUTEROL/IPRATROPIUM 3 ML (DUONEB) VIAL INH ONE (22:45)
[2017-09-30 22:46] LABS: AMPHETAMINE SCREEN, URINE NEGATIVE (NEGATIVE); BARBITURATE SCREEN URINE NEGATIVE (NEGATIVE); BENZODIAZEPINES SCREEN URINE NEGATIVE (NEGATIVE); CANNABINOID SCREEN, URINE POSITIVE (NEGATIVE); COCAINE SCREEN URINE NEGATIVE (NEGATIVE); METHADONE STAT NEGATIVE (NEGATIVE); METHAMPHETAMINE SCREEN URINE S NEGATIVE (NEGATIVE); OPIATE SCREEN URINE NEGATIVE (NEGATIVE); OXYCODONE STAT NEGATIVE (NEGATIVE); PROPOXYPHENE STAT NEGATIVE (NEGATIVE); TRICYCLIC ANTIDEPRESSANTS SCRE NEGATIVE (NEGATIVE)
--- NOTE | 2017-09-30 23:13 | ED Chest Pain ---
General Chief Complaint: Chest Pain Stated Complaint: CP, SOB Source: patient Exam Limitations: no limitations History of Present Illness Date Seen by Provider: September 30, 2017 Time Seen by Provider: 21:44 Initial Comments PT ARRIVES VIA POV FROM HOME C/O SHORTNESS OF BREATH C/O PRODUCTIVE COUGH WITH CLEAR TO COLORED SPUTUM C/O CHEST TIGHTNESS IN CENTER OF CHEST WHICH BEGAN WHILE WALKING INTO A FRIEND' S HOUSE AROUND 1700. PAIN IS MUCH BETTER, BUT IS NOT COMPLETELY GONE ALL SYMPTOMS INCREASE WITH ACTIVITY NO FEVER NO NAUSEA/VOMITING GETS VERY LIGHTHEADED WITH COUGHING NO SWELLING IN LEGS/ FEET OR PAIN IN CAL[place] PT STATES SHE HAS CHEST PAINS OFF AND ON AND GOES AWAY AFTER SHE TAKES AN ASPIRIN--HAS NEVER SOUGHT CARE PT STATES SHE IS REALLY STRESSED OUT LATELY PT ALSO STATES SHE HAS HAD INHALERS IN THE PAST BUT NOT USED ONE FOR A LONG TIME --THINKS SHE NEEDS ONE AGAIN PT HAD GI ILLNESS YESTERDAY AND WENT TO [facility] LAST NIGHT STATES SHE TESTED + FOR H. PYLORI AND WAS GIVEN RX'S FOR AMOXICILLIN, CLARITHROMYCIN, AND PANTOPRAZOLE. PT ONLY FILLED THE AMOXICILLIN, BECAUSE SHE DID NOT HAVE ENOUGH MONEY TO GET THE OTHER 2 MEDICATIONS FILLED. BUT WILL BE ABLE TO FILL THEM TOMORROW. STATES SHE WORKED ALL DAY TODAY GI SYMPTOMS ARE ALOT BETTER, STOMACH IS STILL A LITTLE SORE AND HER APPETITE IS NOT BACK TO NORMAL, BUT OVERALL IS MUCH BETTER. NO URINARY SYMPTOMS PT STATES SHE DRINKS EVERY DAY--AT LEAST 4 "NATURAL ICE" ( HIGHER ALCOHOL CONTENT) BEERS A DAY, OFTEN MORE THAN THAT. HAS NOT HAD ANY IN 2 DAYS PT STATES SHE SMOKES MARIJUANA DAILY, AND HAS BEEN USING "CBD OIL" ( CANNIBUS OIL)--BUT NOT USED THE OIL FOR 2 DAYS. PCP:BONY-ELHAM, GILMAR SHEPPARD Allergies and Home Medications Allergies Coded Allergies: codeine (Verified Adverse Reaction, Unknown, VOMITING, 07/09/17) Home Medications Benzonatate 100 Mg Capsule, 1-2 TAB PO TID Prescribed by: DAMIR CAMACHO on 09/30/172314 Ipratropium/Albuterol Sulfate 3 Ml Ampul.neb, 3 ML IH Q4H PRN for SHORTNESS OF BREATH Prescribed by: DAMIR CAMACHO on 09/30/172314 Prednisone 10 Mg Tab, 40 MG PO DAILY Prescribed by: DAMIR CAMACHO on 09/30/172314 Sucralfate 1 Gm Tablet, 1 GM PO QIDACHS Prescribed by: DAMIR CAMACHO on 09/30/172314 Patient Home Medication List Home Medication List Reviewed: Yes Review of Systems Constitutional: no symptoms reported; No chills, No diaphoresis, No dizziness, No fever, No malaise, No weakness EENTM: No Symptoms Reported Respiratory: See HPI, Cough, Shortness of Air Cardiovascular: See HPI, Chest Pain; Denies Edema, Denies Irregular Heart Rate , Denies Lightheadedness, Denies Palpitations, Denies Syncope Gastrointestinal: See HPI; Denies Abdominal Pain, Denies Diarrhea, Denies Nausea, Denies Vomiting Genitourinary: No Symptoms Reported, Other (LMP 09/23/17. NORMAL. NO CONTROL) Musculoskeletal: no symptoms reported Skin: no symptoms reported Psychiatric/Neurological: See HPI, Anxiety Endocrine: No Symptoms Reported Hematologic/Lymphatic: No Symptoms Reported Past Mmnwbal-Fxmgvi-Sayjvs Hx Patient Social History Alcohol Use: Regular Use (DAILY USE--AT LEAST 4 "NATURAL ICE" BEERS A DAY ( HIGHER ALCOHOL CONTENT) ) Alcohol Beverage of Choice: Beer Recreational Drug Use: Yes (THC AND "CBD OIL" (CANNIBUS OIL") Drug of Choice: THC Smoking Status: Current Someday Smoker (<1/2 PPD) Type Used: Cigarettes 2nd Hand Smoke Exposure: Yes Recent Foreign Travel: No Contact w/Someone Who Travel: No Recent Hopitalizations: No (DETOX 10 YEARS) Immunizations Up To Date Tetanus Booster (TDap): Less than 5yrs PED Vaccines UTD: Yes Seasonal Allergies Seasonal Allergies: Yes Past Medical History Surgeries: No Respiratory: Yes (BRONCHITIS) Cardiac: Yes High Cholesterol Neurological: No Reproductive Disorders: Yes Female Reproductive Disorders: Denies Genitourinary: No Gastrointestinal: Yes Gastroesophageal Reflux, Diverticulosis Musculoskeletal: No Endocrine: No Cancer: No Psychosocial: Yes Sleep Difficulties, Depression Integumentary: No Blood Disorders: No Physical Exam Vital Signs Vital Signs - First Documented 09/30/17 22:45 Pulse Ox 99 Capillary Refill : General Appearance: No Apparent Distress, WD/WN, Anxious, Other (TALKS VERY RAPIDLY AND NON-STOP. FREQUENT LOOSE COUGH. ODOR OF CIGARETTES AND THC) HEENT: PERRL/EOMI, Normal ENT Inspection Neck: Full Range of Motion, Normal Inspection, Non Tender, Supple Respiratory: No Accessory Muscle Use, No Respiratory Distress, Wheezing ( DIFFUSE BILATERAL EXPIRATORY WHEEZING), Other (CHEST TENDER TO PALPATION-- REPRODUCES PAIN, DOES TAKING A DEEP BREATH) Cardiovascular: Regular Rate, Rhythm, No Edema, No JVD, No Murmur, Normal Peripheral Pulses Gastrointestinal: Normal Bowel Sounds, No Organomegaly, No Pulsatile Mass, Non Tender, Soft Extremity: Normal Capillary Refill, Normal Inspection, Normal Range of Motion, Non Tender, No Calf Tenderness, No Pedal Edema 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: Alert, Oriented x3, No Motor/Sensory Deficits, client representative II- XII Norm as Tested, Other (ANXIOUS) Skin: Normal Color, Warm/Dry, Tattoos/Piercings (TATTOOS) Progress/Results/Core Measures Results/Orders Lab Results Laboratory Tests Test 09/30/17 21:55 09/30/17 22:10 Range/Units White Blood Count 5.9 4.3-11.0 10^3/uL Red Blood Count 4.02 L 4.35-5.85 10^6/uL Hemoglobin 13.9 11.5-16.0 G/DL Hematocrit 41 35-52 % Mean Corpuscular Volume 102 H 80-99 FL Mean Corpuscular Hemoglobin 35 H 25-34 PG Mean Corpuscular Hemoglobin Concent 34 32-36 G/DL Red Cell Distribution Width 12.6 10.0-14.5 % Platelet Count 256 130-400 10^3/uL Mean Platelet Volume 8.8 7.4-10.4 FL Neutrophils (%) (Auto) 55 42-75 % Lymphocytes (%) (Auto) 33 12-44 % Monocytes (%) (Auto) 11 0-12 % Eosinophils (%) (Auto) 1 0-10 % Basophils (%) (Auto) 0 0-10 % Neutrophils # (Auto) 3.3 1.8-7.8 X 10^3 Lymphocytes # (Auto) 1.9 1.0-4.0 X 10^3 Monocytes # (Auto) 0.6 0.0-1.0 X 10^3 Eosinophils # (Auto) 0.1 0.0-0.3 10^3/uL Basophils # (Auto) 0.0 0.0-0.1 10^3/uL Prothrombin Time 12.6 12.2-14.7 SEC INR Comment 1.0 0.8-1.4 Activated Partial Thromboplast Time 26 24-35 SEC Sodium Level 142 135-145 MMOL/L Potassium Level 3.7 3.6-5.0 MMOL/L Chloride Level 105 98-107 MMOL/L Carbon Dioxide Level 24 21-32 MMOL/L Anion Gap 13 5-14 MMOL/L Blood Urea Nitrogen 14 7-18 MG/DL Creatinine 0.79 0.60-1.30 MG/DL Estimat Glomerular Filtration Rate > 60 BUN/Creatinine Ratio 18 Glucose Level 109 H 70-105 MG/DL Calcium Level 9.9 8.5-10.1 MG/DL Magnesium Level 2.0 1.8-2.4 MG/DL Total Bilirubin 0.6 0.1-1.0 MG/DL Aspartate Amino Transf (AST/SGOT) 22 5-34 U/L Alanine Aminotransferase (ALT/SGPT) 24 0-55 U/L Alkaline Phosphatase 58 40-136 U/L Total Creatine Kinase 66 29-168 U/L Creatine Kinase MB 1.0 <6.6 NG/ML Troponin I < 0.30 <0.30 NG/ML B-Type Natriuretic Peptide 32.7 <100.0 PG/ML Total Protein 7.1 6.4-8.2 GM/DL Albumin 4.2 3.2-4.5 GM/DL Amylase Level 45 25-125 U/L Lipase 23 8-78 U/L Serum Test, Qualitative NEGATIVE NEGATIVE Serum Alcohol < 10 <10 MG/DL Urine Color YELLOW Urine Clarity CLEAR Urine pH 7 5-9 Urine Specific [place] 1.010 L 1.016-1.022 Urine Protein NEGATIVE NEGATIVE Urine Glucose (UA) NEGATIVE NEGATIVE Urine Ketones NEGATIVE NEGATIVE Urine Nitrite NEGATIVE NEGATIVE Urine Bilirubin NEGATIVE NEGATIVE Urine Urobilinogen NORMAL NORMAL MG/DL Urine Leukocyte Esterase 1+ H NEGATIVE Urine RBC (Auto) 2+ H NEGATIVE Urine RBC 2-5 H /HPF Urine WBC 0-2 /HPF Urine Squamous Epithelial Cells 25-50 H /HPF Urine Crystals NONE /LPF Urine Bacteria FEW H /HPF Urine Casts NONE /LPF Urine Mucus LARGE H /LPF Urine Culture Indicated NO Urine Opiates Screen NEGATIVE NEGATIVE Urine Oxycodone Screen NEGATIVE NEGATIVE Urine Methadone Screen NEGATIVE NEGATIVE Urine Propoxyphene Screen NEGATIVE NEGATIVE Urine Barbiturates Screen NEGATIVE NEGATIVE Ur Tricyclic Antidepressants Screen NEGATIVE NEGATIVE Urine Phencyclidine Screen NEGATIVE NEGATIVE Urine Amphetamines Screen NEGATIVE NEGATIVE Urine Methamphetamines Screen NEGATIVE NEGATIVE Urine Benzodiazepines Screen NEGATIVE NEGATIVE Urine Cocaine Screen NEGATIVE NEGATIVE Urine Cannabinoids Screen POSITIVE H NEGATIVE My Orders Orders - DAMIR CAMACHO DO Amylase (09/30/17 21:54) Cbc With Automated Diff (09/30/17 21:54) Comprehensive Metabolic Panel (09/30/17 21:54) Creatine Kinase (09/30/17 21:54) Creatine Kinase Mb (09/30/17 21:54) Lipase (09/30/17 21:54) Partial Thromboplastin Time (09/30/17 21:54) Protime With Inr (09/30/17 21:54) Troponin I (09/30/17 21:54) Chest 1 View, Ap/Pa Only (09/30/17 21:54) O2 (09/30/17 21:54) Ekg Tracing (09/30/17 21:54) Aspirin Chewable Tablet (Baby Aspirin Ch (09/30/17 22:00) BNP (09/30/17 21:54) Monitor-Rhythm Ecg Trace Only (09/30/17 21:54) Nitroglycerin 0.4 Mg Btl 25's (Nitrostat (09/30/17 22:00) Alcohol (09/30/17 21:54) Drug Screen Stat (Urine) (09/30/17 21:54) Hcg,Qualitative Serum (09/30/17 21:54) Magnesium (09/30/17 21:54) Ua Culture If Indicated (09/30/17 21:54) Albuterol/Ipra Inhalation Soln (Duoneb I (09/30/17 22:45) Rt Request For Service (09/30/17 22:35) Methylprednisolone Sod Succ (Solu-Medrol (09/30/17 22:35) Svn Small Volume Nebulizer (09/30/17 22:35) Rx-Albuterol Inhaler (Rx-Proair) (09/30/17 23:15) Ceftriaxone Injection (Rocephin Injectio (09/30/17 23:15) Medications Given in ED Current Medications Medications Dose Ordered Sig/Glil Route Start Time Stop Time Status Last Admin Dose Admin Albuterol Sulfate 1 gm ONCE ONCE IH 09/30/17 23:15 09/30/17 23:16 DC 09/30/17 23:22 1 GM Albuterol/ Ipratropium 3 ml ONCE ONCE INH 09/30/17 22:45 09/30/17 22:46 DC 09/30/17 22:44 3 ML Aspirin 324 mg ONCE ONCE PO 09/30/17 22:00 09/30/17 22:01 DC 09/30/17 22:06 324 MG Ceftriaxone Sodium 1000 mg/ Sodium Chloride 50 ml @ 100 mls/hr ONCE ONCE IV 09/30/17 23:15 09/30/17 23:44 DC 09/30/17 23:22 100 MLS/HR Nitroglycerin 1 TAB Q 5 MIN X 3 NEEDED PRN SL 09/30/17 22:00 10/01/17 00:35 DC 09/30/17 22:07 0.4 MG Vital Signs/I&O 09/30/17 09/30/17 09/30/17 09/30/17 21:44 21:44 22:45 23:38 Temp 97.8 Pulse 80 Resp 16 B/P (MAP) 162/97 (118) Pulse Ox 99 98 O2 Delivery Room Air Room Air Room Air Room Air 10/01/17 00:25 Temp 97.9 Pulse 78 Resp 13 B/P (MAP) 132/94 Pulse Ox 97 O2 Delivery Room Air Progress Progress Note : Progress Note COMPLETE RESOLUTION OF ALL SYMPTOMS AFTER NEB TREATMENT--PT REQUESTS RX FOR NEBULIZER AND INHALER INCREASE IN O2 SATS--97% ON ROOM AIR. NEBULIZER AND SPACER/INHALER TEACHING DONE BY RT STAFF. PT FEELS COMFORTABLE GOING HOME Initial ECG Impression Date: September 30, 2017 Initial ECG Impression Time: 21:48 Initial ECG Rate: 70 Initial ECG Rhythm: Normal Sinus Diagnostic Imaging Comments CXR--NO ACUTE PROCESS, PENDING RADIOLOGIST REVIEW Reviewed: Reviewed by Me Departure Impression Primary Impression: Bronchitis Additional Impression: Anterior chest wall pain Disposition: HOME, SELF-CARE Condition: Improved Departure-Patient Inst. Referrals: [facility] (PCP/Family) Primary Care Physician Patient Instructions: Acute Bronchitis, Adult (DC), Costochondritis (DC), SMOKING CESSATION Add. Discharge Instructions: TYLENOL AND MOTRIN NEEDED FOR PAIN OR FEVER LOTS OF CLEAR LIQUIDS GET YOUR PRESCRIPTIONS FOR CLARITHROMYCIN AND PANTOPRAZOLE FILLED TOMORROW AND TAKE PRESCRIBED, ALONG WITH THE AMOXICILLIN NO SMOKING FOLLOW UP WITH [facility] IN 2-3 DAYS FOR FURTHER CARE RETURN TO ER IF WORSE All discharge instructions reviewed with patient and/or family. Voiced understanding. Scripts Nebulizer (Compact Compressor Nebulizer) 1 Each Each EACH MC for BREATHING, #1 Prov: DAMIR CAMACHO DO 09/30/17 Sucralfate (Carafate) 1 Gm Tablet 1 GM PO QIDACHS, #60 TAB Prov: DAMIR CAMACHO DO 09/30/17 Benzonatate (Tessalon Perle) 100 Mg Capsule 1-2 TAB PO TID for Cough, #30 CAP Prov: DAMIR CAMACHO DO 09/30/17 Prednisone (Prednisone) 10 Mg Tab 40 MG PO DAILY, #12 TAB Prov: DAMIR CAMACHO DO 09/30/17 Ipratropium/Albuterol Sulfate (Iprat-Albut 0.5-3(2.5) mg/3 ml) 3 Ml Ampul.neb 3 ML IH Q4H PRN for SHORTNESS OF BREATH, #1 EACH Prov: DAMIR CAMACHO DO 09/30/17 DAMIR CAMACHO DO September 30, 2017 23:13
[2017-09-30] MEDS ORDERED: IPRA3AMP IH (23:15)
[2017-09-30] MEDS ORDERED: PRD10T PO (23:15)
[2017-09-30] MEDS ORDERED: RX-ALBUTEROL INHALER (PROAIR) 8 GM IH ONE (23:15)
[2017-09-30] MEDS ORDERED: BENZ-13 PO (23:15)
[2017-09-30] MEDS ORDERED: cefTRIAXone INJECTION 1,000 MG in NS (IVPB) 50 ML IV ONE (23:15)
[2017-09-30] MEDS ORDERED: SUCR1TAB36 PO (23:15)
[2017-09-30] MEDS ORDERED: NEBU1KIT3 MC (23:19)
[2017-10-01 00:25] VITALS: BP 132/94
--- NOTE | 2017-10-01 05:28 | Diagnostic Imaging Report ---
INDICATION: Cough and congestion and shortness of breath Frontal chest obtained at 1025 PM and is compared with 08/23/2016. Heart and mediastinal silhouette are unremarkable. The lungs are clear. There is no pneumothorax or pleural fluid. Metallic BB fragment overlies the cardiac silhouette on this view, unchanged from 08/23/2016. IMPRESSION: No acute process in the chest and no change from 08/23/2016. Dictated by: Dictated on workstation # [id number]
== END 2017-10-01 00:25 | disposition home or self-care (01) ==
LOC: EDUNIT# 21:41 → ER 21:42
DX: J40 Bronchitis, not specified as acute or chronic (principal); R07.89 Other chest pain; E78.00 Pure hypercholesterolemia, unspecified; F32.9 Major depressive disorder, single episode, unspecified; K21.9 Gastro-esophageal reflux disease without esophagitis; F12.10 Cannabis abuse, uncomplicated; F17.210 Nicotine dependence, cigarettes, uncomplicated; Z88.5 Allergy status to narcotic agent; Z87.19 Personal history of other diseases of the digestive system; Z79.52 Long term (current) use of systemic steroids; Z79.51 Long term (current) use of inhaled steroids
CPT/HCPCS: 36415; 71045; 80053; 80306; 80320; 81000; 82150; 82550; 82553; 83690; 83735; 83880; 84484; 84703; 85025; 85610; 85730; 93005; 93041; 94640; 94664; 96365; 96375

== ENCOUNTER 2021-01-21 17:18 | Inpatient (IN) | payer OTHER ==
[~2021-01-21] VITALS: Ht 172.7 cm; Wt 104.3 kg
[~2021-01-21 17:18] MED LIST changes: +BENZ100C18 PO; +HYDR-4226 PO; -HYDR-757 PO; +IPRA3AMP31 IH; +NEBU1KIT3 MC; +PRD10T PO; +SUCR1TAB36 PO; -SULF1TAB35 PO; +SULF1TAB38 PO
[2021-01-21] MEDS ORDERED: LACTATED RINGERS 1,000 ML IV ONE ×2 (18:30→23:44)
[2021-01-21] MEDS ORDERED: ONDANSETRON 4 MG/2 ML (SDV) Z0FRAN IVP ONE (18:30)
[2021-01-21 18:41] LABS: POTASSIUM 3.6 MMOL/L (3.6-5.0)
[2021-01-21 18:42] LABS: CALCIUM 8.3 MG/DL (8.5-10.1)
[2021-01-21 18:43] LABS: TOTAL PROTEIN 6.7 GM/DL (6.4-8.2)
[2021-01-21 18:44] LABS: EOSINOPHILS % (AUTO) 1 % (0-10)
[2021-01-21 18:45] LABS: BILIRUBIN,TOTAL 1.4 MG/DL (0.1-1.0)
[2021-01-21 18:46] LABS: BASOPHILS % (AUTO) 1 % (0-10); HEMATOCRIT 42 % (35-52); HEMOGLOBIN 15.5 g/dL (11.5-16.0); LYMPHOCYTES # (AUTO) 1.3 10^3/uL (1.0-4.0); LYMPHOCYTES % (AUTO) 38 % (12-44); MEAN CORPUSCULAR HEMOGLOBIN 36 pg (25-34); MEAN CORPUSCULAR HGB CONC 37 g/dL (32-36); MEAN CORPUSCULAR VOLUME 96 fL (80-99); MEAN PLATELET VOLUME 9.2 fL (9.0-12.2); MONOCYTES # (AUTO) 0.5 10^3/uL (0.0-1.0); MONOCYTES % (AUTO) 14 % (0-12); NEUTROPHILS # (AUTO) 1.6 10^3/uL (1.8-7.8); NEUTROPHILS % (AUTO) 46 % (42-75); PLATELET COUNT 136 10^3/uL (130-400); WHITE BLOOD COUNT 3.4 10^3/uL (4.3-11.0)
[2021-01-21 18:47] LABS: CREATININE SERUM 0.64 MG/DL (0.60-1.30)
[2021-01-21 18:50] LABS: MAGNESIUM 1.5 MG/DL (1.6-2.4)
[2021-01-21 19:11] LABS: TSH (THYROID ANALYZER) 0.71 UIU/ML (0.35-4.94)
[2021-01-21 19:51] LABS: BILIRUBIN,URINE NEGATIVE (NEGATIVE); CLARITY,URINE CLEAR; COLOR,URINE YELLOW; GLUCOSE, URINE (UA) NEGATIVE (NEGATIVE); KETONES,URINE NEGATIVE (NEGATIVE); LEUKOCYTE ESTERASE ,URINE NEGATIVE (NEGATIVE); NITRITE,URINE NEGATIVE (NEGATIVE); PROTEIN,URINE NEGATIVE (NEGATIVE)
[2021-01-21 20:01] LABS: AMORPHOUS SEDIMENT,UR RARE AMOR URATES /LPF; BACTERIA,URINE TRACE /HPF; WBC,URINE 0-2 /HPF
[2021-01-21] MEDS ORDERED: LORazepam INJ 2 MG/ML (ATIVAN) VIAL IVP ONE (21:00)
--- NOTE | 2021-01-21 21:09 | ED General ---
General Chief Complaint: Abdominal/GI Problems Stated Complaint: WEAKNESS/NAUSEA/ELEV BP Nursing Triage Note: PT AMB TO RM 4 WITH COMPLAINT OF HIGH BLOOD PRESSURE, WEAKNESS, AND NAUSEA/VOMITING. STATES STARTED 6 DAYS AGO AND IS UNABLE TO EAT. DENIES TAKING BLOOD PRESSURE MEDICINE. STATES THOUGHT SYMPTOMS WERE DUE TO ANXIETY/DEPRESSION AND STARTED PROZAC 5 DAYS AGO. Source of Information: Patient, Family Exam Limitations: No Limitations History of Present Illness Date Seen by Provider: Jan 21, 2021 Time Seen by Provider: 17:46 Initial Comments This is a 50-year-old woman presents with symptoms of weakness, nausea, vomiting, and abdominal discomfort since January 16. She also started taking Prozac about the same time but states the symptoms started before initiating Prozac. She has not been able to eat or drink a significant amount during this period of time. She denies any cough, shortness of breath, chest pain, or fever. She later admits to drinking 4 large beers daily until today. She notes hypertension and anxiety as well. Allergies and Home Medications Allergies Coded Allergies: codeine (Verified Adverse Reaction, Unknown, VOMITING, 07/09/17) Patient Home Medication List Home Medication List Reviewed: Yes Benzonatate (Tessalon Perles) 100 Mg Capsule, 1-2 TAB PO TID Prescribed by: DAMIR CAMACHO on 09/30/172314 Ipratropium/Albuterol Sulfate (Iprat-Albut 0.5-3(2.5) mg/3 ml) 3 Ml Ampul.neb, 3 ML IH Q4H PRN for SHORTNESS OF BREATH Prescribed by: DAMIR CAMACHO on 09/30/172314 Nebulizer (Compact Compressor Nebulizer) 1 Each Each, EACH MC, (DME) Prescribed by: DAMIR CAMCAHO on 09/30/172318 Prednisone (Prednisone) 10 Mg Tab, 40 MG PO DAILY Prescribed by: DAMIR CAMACHO on 09/30/172314 Sucralfate (Carafate) 1 Gm Tablet, 1 GM PO QIDACHS Prescribed by: DAMIR CAMACHO on 09/30/172314 Review of Systems Review of Systems Constitutional: see HPI EENTM: no symptoms reported Respiratory: no symptoms reported Cardiovascular: see HPI Gastrointestinal: see HPI Genitourinary: no symptoms reported : No Musculoskeletal: no symptoms reported Skin: no symptoms reported Psychiatric/Neurological: See HPI Hematologic/Lymphatic: No Symptoms Reported Immunological/Allergic: no symptoms reported Past Oeinzss-Odtfvv-Sxghtr Hx Patient Social History Tobacco Use?: Yes Tobacco type used: Cigarettes Smoking Status: Current Someday Smoker Use of E-Cig and/or Vaping dev: No Substance use?: Yes Substance type: Marijuana Alcohol Use?: Yes Alcohol Frequency: Once in a while Pt feels they are or have been: No Immunizations Up To Date Tetanus Booster (TDap): Less than 5yrs PED Vaccines UTD: Yes First/Initial COVID19 Vaccinat: AUGUST 2020 Second COVID19 Vaccination [place]: AUGUST 2020 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: [employer] Seasonal Allergies Seasonal Allergies: Yes Past Medical History Surgeries: No Respiratory: Yes (BRONCHITIS) Cardiac: Yes High Cholesterol Neurological: No Reproductive Disorders: Yes Female Reproductive Disorders: Denies Genitourinary: No Gastrointestinal: Yes Gastroesophageal Reflux, Diverticulosis Musculoskeletal: No Endocrine: No Cancer: No Psychosocial: Yes Sleep Difficulties, Depression Integumentary: No Blood Disorders: No Physical Exam Vital Signs Vital Signs - First Documented 01/21/21 17:43 Temp 35.9 Pulse 63 Resp 19 B/P (MAP) 170/131 (144) Pulse Ox 96 O2 Delivery Room Air Capillary Refill : Less Than 3 Seconds Height, Weight, BMI Height: 5'9.00" Weight: 204lbs. 2.0oz. 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, Other (Anxious) Skin: Normal Color, Warm/Dry Progress/Results/Core Measures Suspected Sepsis SIRS Temperature: Pulse: 63 Respiratory Rate: 19 Laboratory Tests 01/21/21 18:22: White Blood Count 3.4L Blood Pressure 170 /131 Mean: 144 Laboratory Tests 01/21/21 18:22: Creatinine 0.64, INR Comment 1.3, Platelet Count 136, Total Bilirubin 1.4H Results/Orders Lab Results Laboratory Tests Test 01/21/21 18:22 01/21/21 18:24 01/21/21 19:45 Range/Units White Blood Count 3.4 L 4.3-11.0 10^3/uL Red Blood Count 4.34 3.80-5.11 10^6/uL Hemoglobin 15.5 11.5-16.0 g/dL Hematocrit 42 35-52 % Mean Corpuscular Volume 96 80-99 fL Mean Corpuscular Hemoglobin 36 H 25-34 pg Mean Corpuscular Hemoglobin Concent 37 H 32-36 g/dL Red Cell Distribution Width 14.1 10.0-14.5 % Platelet Count 136 130-400 10^3/uL Mean Platelet Volume 9.2 9.0-12.2 fL Immature Granulocyte % (Auto) 1 % Neutrophils (%) (Auto) 46 42-75 % Lymphocytes (%) (Auto) 38 12-44 % Monocytes (%) (Auto) 14 H 0-12 % Eosinophils (%) (Auto) 1 0-10 % Basophils (%) (Auto) 1 0-10 % Neutrophils # (Auto) 1.6 L 1.8-7.8 10^3/uL Lymphocytes # (Auto) 1.3 1.0-4.0 10^3/uL Monocytes # (Auto) 0.5 0.0-1.0 10^3/uL Eosinophils # (Auto) 0.0 0.0-0.3 10^3/uL Basophils # (Auto) 0.0 0.0-0.1 10^3/uL Immature Granulocyte # (Auto) 0.0 0.0-0.1 10^3/uL Percent Immature Platelet Fraction 3.0 0.0-7.6 % Prothrombin Time 16.3 H 12.2-14.7 SEC INR Comment 1.3 0.8-1.4 Sodium Level 134 L 135-145 MMOL/L Potassium Level 3.6 3.6-5.0 MMOL/L Chloride Level 102 98-107 MMOL/L Carbon Dioxide Level 19 L 21-32 MMOL/L Anion Gap 13 5-14 MMOL/L Blood Urea Nitrogen 9 7-18 MG/DL Creatinine 0.64 0.60-1.30 MG/DL Estimat Glomerular Filtration Rate 99 BUN/Creatinine Ratio 14 Glucose Level 112 H 70-105 MG/DL Calcium Level 8.3 L 8.5-10.1 MG/DL Corrected Calcium 9.1 8.5-10.1 MG/DL Magnesium Level 1.5 L 1.6-2.4 MG/DL Total Bilirubin 1.4 H 0.1-1.0 MG/DL Aspartate Amino Transf (AST/SGOT) 1260 H 5-34 U/L Alanine Aminotransferase (ALT/SGPT) 666 H 0-55 U/L Alkaline Phosphatase 129 40-136 U/L C-Reactive Protein High Sensitivity 0.10 0.00-0.50 MG/DL Total Protein 6.7 6.4-8.2 GM/DL Albumin 3.0 L 3.2-4.5 GM/DL Lipase 72 8-78 U/L TSH [place] Testing 0.71 0.35-4.94 UIU/ML Serum Test, Qualitative NEGATIVE NEGATIVE Serum Alcohol 116 H <10 MG/DL Influenza Type A Antigen NEGATIVE NEGATIVE Influenza Type B Antigen NEGATIVE NEGATIVE Urine Color YELLOW Urine Clarity CLEAR Urine pH 6.0 5-9 Urine Specific [place] 1.020 1.016-1.022 Urine Protein NEGATIVE NEGATIVE Urine Glucose (UA) NEGATIVE NEGATIVE Urine Ketones NEGATIVE NEGATIVE Urine Nitrite NEGATIVE NEGATIVE Urine Bilirubin NEGATIVE NEGATIVE Urine Urobilinogen 1.0 < = 1.0 MG/DL Urine Leukocyte Esterase NEGATIVE NEGATIVE Urine RBC (Auto) 1+ H NEGATIVE Urine RBC 2-5 H /HPF Urine WBC 0-2 /HPF Urine Crystals PRESENT H /LPF Urine Amorphous Sediment RARE JAVIER URATES H /LPF Urine Bacteria TRACE /HPF Urine Casts NONE /LPF Urine Mucus NEGATIVE /LPF Urine Culture Indicated NO My Orders Orders - SHELLEY LU MD Cbc With Automated Diff (01/21/21 18:06) Comprehensive Metabolic Panel (01/21/21 18:06) Lipase (01/21/21 18:06) Ed Iv/Invasive Line Start (01/21/21 18:06) Ondansetron Injection (Zofran Injectio (01/21/21 18:30) Hs C Reactive Protein (01/21/21 18:17) Magnesium (01/21/21 18:17) Thyroid Analyzer (01/21/21 18:17) Coronavirus Sars-Cov-2 So 2018 (01/21/21 18:17) Hcg,Qualitative Serum (01/21/21 18:17) Lactated Ringers (Lr 1000 Ml Iv Solution (01/21/21 18:30) Influenza A & B Antigens (01/21/21 18:26) Hepatitis Panel Acute (01/21/21 20:47) Lorazepam Injection (Ativan Injection) (01/21/21 21:00) Protime With Inr (01/21/21 20:55) Alcohol (01/21/21 18:22) Medications Given in ED Current Medications Medications Dose Ordered Sig/Gill Route Start Time Stop Time Status Last Admin Dose Admin Lorazepam 0.5 mg ONCE ONCE IVP 01/21/21 21:00 01/21/21 21:01 DC 01/21/21 21:04 0.5 MG Vital Signs/I&O 01/21/21 17:43 Temp 35.9 Pulse 63 Resp 19 B/P (MAP) 170/131 (144) Pulse Ox 96 O2 Delivery Room Air Capillary Refill : Less Than 3 Seconds Blood Pressure Mean: 144 Progress Note : Time: 21:07 Progress Note Patient was found to have a significant elevation in transaminases when compared with her prior values. AST is roughly twice the ALT suggesting an alcoholic induced hepatitis. Patient states she typically drinks 4 large beers daily until today. Her hypertension and anxiety are likely related to withdrawal. We are giving her some Ativan in the emergency room. She is hesitant to take Ativan so we are starting with 0.5 mg. She is being admitted for monitoring of acute hepatitis and alcohol withdrawal. Since she has not been established at [facility] and has only seen in the walk-in clinic, she will be admitted to the hospitalist service. I discussed the case with Dr. Garcia. She had wheezing on exam and a MAT protocol is being ordered to manage her COPD. She desires full CODE STATUS. Departure Communication (Admissions) Time/Spoke to Admitting Phy: 21:03 Dr. Garcia Impression Primary Impression: Acute hepatitis Additional Impressions: Alcohol withdrawal Qualified Codes: F10.239 - Alcohol dependence with withdrawal, unspecified COPD (chronic obstructive pulmonary disease) Qualified Codes: J44.9 - Chronic obstructive pulmonary disease, unspecified Disposition: ADMITTED INPATIENT Condition: Improved Admissions Decision to Admit Reason: Admit from ER (General) Decision to Admit/Date: Jan 21, 2021 Time/Decision to Admit Time: 20:55 Departure-Patient Inst. Referrals: NO,LOCAL PHYSICIAN (PCP/Family) Primary Care Physician SHELLEY LU MD Jan 21, 2021 21:09
[2021-01-21 21:11] LABS: INR 1.3 (0.8-1.4); PROTHROMBIN TIME PATIENT 16.3 SEC (12.2-14.7)
[2021-01-21 23:18] VITALS: BP_SYST 163; BP_SYST 179; BP_DIAS 86; BP_DIAS 87
[2021-01-22] VITALS (8 sets, daily range): BP systolic 140–175; BP diastolic 77–131
[2021-01-22] MEDS ORDERED: LORazepam INJ 2 MG/ML (ATIVAN) VIAL IV PRN
[2021-01-22] MEDS ORDERED: ONDANSETRON 4 MG (ZOFRAN) ORAL DISSOLVE TAB SL PRN
[2021-01-22] MEDS ORDERED: LORazepam 1 MG (ATIVAN) TAB PO PRN
[2021-01-22] MEDS ORDERED: SENNA W/DOCUSATE (SENOKOT S) TABLET PO PRN
[2021-01-22] MEDS ORDERED: ANTACID SUSP 30 ML UDC (MYLANTA) PO PRN
[2021-01-22] MEDS ORDERED: D5 1/2 NS 1000 ML IV SOLUTION 1,000 ML IV PRN
[2021-01-22] MEDS ORDERED: 1/2 NS IV SOLUTION 1,000 ML IV PRN
[2021-01-22] MEDS ORDERED: LORazepam INJ 2 MG/ML (ATIVAN) VIAL IM/IV PRN
[2021-01-22] MEDS: LACTATED RINGERS 1,000 ML IV SCH ×4 (00:02→19:51)
[2021-01-22] MEDS ORDERED: RT-ALBUTEROL/IPRATROPIUM 3 ML (DUONEB) VIAL INH PRN (01:00)
[2021-01-22] MEDS: RT-ALBUTEROL/IPRATROPIUM 3 ML (DUONEB) VIAL INH SCH ×4 (02:06→21:25)
[2021-01-22 04:28] LABS: EOSINOPHILS % (AUTO) 1 % (0-10); HEMATOCRIT 41 % (35-52)
[2021-01-22 04:30] LABS: BASOPHILS % (AUTO) 1 % (0-10); LYMPHOCYTES # (AUTO) 1.5 10^3/uL (1.0-4.0); LYMPHOCYTES % (AUTO) 38 % (12-44); MEAN CORPUSCULAR HEMOGLOBIN 35 pg (25-34); MEAN CORPUSCULAR HGB CONC 37 g/dL (32-36); MEAN CORPUSCULAR VOLUME 95 fL (80-99); MEAN PLATELET VOLUME 10.2 fL (9.0-12.2); MONOCYTES # (AUTO) 0.3 10^3/uL (0.0-1.0); MONOCYTES % (AUTO) 8 % (0-12); NEUTROPHILS # (AUTO) 2.1 10^3/uL (1.8-7.8); NEUTROPHILS % (AUTO) 53 % (42-75); PLATELET COUNT 111 10^3/uL (130-400); WHITE BLOOD COUNT 3.9 10^3/uL (4.3-11.0)
[2021-01-22 04:53] LABS: ALBUMIN 2.8 GM/DL (3.2-4.5); POTASSIUM 3.5 MMOL/L (3.6-5.0)
[2021-01-22 04:55] LABS: TOTAL PROTEIN 6.2 GM/DL (6.4-8.2)
[2021-01-22 04:59] LABS: CREATININE SERUM 0.65 MG/DL (0.60-1.30)
[2021-01-22] MEDS: THIAMINE 100 MG (VITAMIN B-1) TAB PO SCH (08:18)
[2021-01-22] MEDS: MAGNESIUM OXIDE (MAG-OX)400 MG TAB PO SCH ×2 (08:18→19:51)
[2021-01-22] MEDS: MULTIVIT W/MINERALS TAB (THERAGRAN M) PO SCH (08:18)
[2021-01-22] MEDS: FOLIC ACID 1 MG TAB PO SCH (08:18)
--- NOTE | 2021-01-22 08:36 | Diagnostic Imaging Report ---
INDICATION: Right upper quadrant pain Gallbladder sonography performed in a routine fashion. The liver shows diffuse increased echogenicity compatible with fatty change. There is no focal liver lesion. Gallbladder is unremarkable with no stones or wall thickening. Common duct is not well seen due to overlying gas but no intrahepatic biliary dilatation was seen. Pancreas and aorta and IVC are obscured by overlying gas. The right kidney is also obscured by overlying gas. Portal vein could not be well seen. IMPRESSION: Limited study as above. There is diffuse fatty infiltration of the liver without focal lesion. Gallbladder appears unremarkable. Dictated by: Dictated on workstation # [id number]
[2021-01-22] MEDS: ONDANSETRON 4 MG/2 ML (SDV) Z0FRAN IV PRN ×2 (10:04→21:07)
--- NOTE | 2021-01-22 12:19 | History & Physical-Hospitalist ---
SUSIEMUNIRZAINAB A MED STUDENT 01/22/21 1219: History of Present Illness HPI/Chief Complaint 50 yo female presented to ED for high blood pressure, weakness and N/V for six days. Pt has hx of COPD, Diverticulosis, GERD, depression and ETOH abuse. Pt reports she last ate solid foods on Thursday, but has not kept anything down since. Currently tolerating clear liquid diet with some dry heaving. Last BM was solid this morning. Pt reports she has not drank ETOH for three days. Prior to this she was drinking 4-5 tall Natty light cans per day. Pt has been seeing Daphne Serrano for counseling for depression. She was recently started on Prozac, but stopped taking it d/t N/V a few days ago. Pt denies having a PCP horacio, but has appt with [facility] on February 14. Pt gets her inhaler refilled at [facility]. Date Seen 01/22/21 Time Seen by a Provider: 12:15 Attending Physician Caleb Garcia MD PCP No,Local Physician Referring Physician Date of Admission Jan 21, 2021 at 21:03 Home Medications & Allergies Home Medications Reviewed patient Home Medication Reconciliation performed by pharmacy medication reconciliations ict help desk technician and/or nursing. Patients Allergies have been reviewed. Allergies Allergies Coded Allergies codeine (Verified Adverse Reaction, Unknown, VOMITING, 07/09/17) Past Soageoa-Wohdeh-Ilsfuf Hx Patient Social History Tobacco Use?: Yes Tobacco type used: Cigarettes Smoking Status: Current Someday Smoker Use of E-Cig and/or Vaping dev: No Substance use?: Yes Substance type: Marijuana Substance frequency: Couple times a week Alcohol Use?: Yes Alcohol type: Beer Alcohol Frequency: Daily Pt feels they are or have been: No Immunizations Up To Date First/Initial COVID19 Vaccinat: AUGUST 2020 Second COVID19 Vaccination Elfego: AUGUST 2020 Tetanus Booster (TDap): Unknown Hepatitis A: Yes PED Vaccines UTD: Yes Seasonal Allergies Seasonal Allergies: Yes Current Status Advance Directives: No Communicates: Verbally Primary Language: Martiniquais Preferred Spoken Language: Martiniquais Is interpretation needed?: No Past Medical History High Cholesterol Gastroesophageal Reflux, Diverticulosis Sleep Difficulties, Depression Blood Disorders: No Review of Systems Constitutional: No chills, No fever; malaise Respiratory: cough; No dyspnea on exertion, No short of breath Cardiovascular: No chest pain, No palpitations Gastrointestinal: No abdominal pain, No constipation, No diarrhea; loss of appetite, nausea, vomiting Genitourinary: No dysuria, No frequency Psychiatric/Neurological: Depressed Physical Exam Physical Exam Vital Signs Vital Signs - First Documented 01/21/21 01/22/21 01/22/21 17:43 00:52 10:46 Temp 35.9 Pulse 63 Resp 19 B/P (MAP) 170/131 (144) Pulse Ox 96 O2 Delivery Room Air O2 Flow Rate 0.00 FiO2 21 Capillary Refill : Less Than 3 Seconds Height, Weight, BMI Height: 5'9.00" Weight: 204lbs. 2.0oz. 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 Assessment/Plan Admission Diagnosis Acute hepatitis with fatty liver changes ETOH withdrawal Reason for Inpatient Admission: Acute hepatitis with fatty liver changes ETOH withdrawal Assessment and Plan Acute hepatitis with fatty liver changes ETOH withdrawal Hypertension COPD Hyponatremia Hypokalemia Acute hepatitis with fatty liver changes -Elevated AST, ALT, ALP and bili -Likely d/t ETOH use ETOH withdrawal -Thiamine, Folic Acid and Mag Oxide -Ativan ordered Hypertension -Will continue to monitor COPD -Albuterol/Ipatropium 3mL q6hr Hyponatremia -LR 125ml/hr -Will continue to monitor with daily labs Hypokalemia -Start KCl 40meq EDMOND GUADALUPE MD 01/22/21 1347: Assessment/Plan Admission Diagnosis Admission Status: Inpatient Order (span 2 midnights) Reason for Inpatient Admission: see below Assessment and Plan Patient admitted due to acute hepatitis and alcohol withdrawal. She has chronic daily alcohol use of 4 drinks per day per her report pression there is some question to the accuracy of this she states she last drink 4 days ago. When questioned about her alcohol level being 116 on arrival she is adamant that she last drink 4 days ago. Her is at bedside and states that actually they believe her last drink was 2 days ago during the [employer] game. Despite this she reports she is ready to quit. She denies any needs for help. She has previously abstained from alcohol for over 3 months without any deleterious side effects. She did have elevated liver enzymes and hepatitis panel was pending. She reports feeling much better and was able to tolerate some food and has not vomited today. Hopeful for discharge tomorrow if she continues to do well. Advised following up with [facility] as is already scheduled for continued medical care. Diagnosis/Problems Diagnosis/Problems (1) Acute hepatitis Status: Acute (2) Alcohol withdrawal Status: Acute Qualifiers: Complication of substance-induced condition: with unspecified complication Qualified Codes: F10.239 - Alcohol dependence with withdrawal, unspecified (3) COPD (chronic obstructive pulmonary disease) Status: Acute Qualifiers: COPD type: unspecified COPD Qualified Codes: J44.9 - Chronic obstructive pulmonary disease, unspecified (4) Marijuana use Status: Acute (5) Daily consumption of alcohol Status: Acute Supervisory-Addendum Brief Verification & Attestation Participated in pt care: history, MDM, physical Personally performed: exam, history, MDM, supervision of care Care discussed with: Medical Student Procedures: n/a Results interpretation: Verified all documentation Verification and Attestation of Medical Student E/M Service A medical student performed and documented this service in my presence. I reviewed and verified all information documented by the medical student and made modifications to such information, when appropriate. I personally performed the physical exam and medical decision making. Edmond Guadalupe, Jan 22, 2021,13:42 ZAINAB STAFFORD MED STUDENT Jan 22, 2021 12:19 EDMOND GUADALUPE MD Jan 22, 2021 13:47
[2021-01-22] MEDS: MAGNESIUM 1 GM/100 ML IVPB 100 ML IV SCH ×2 (14:13→15:21)
[2021-01-22 17:29] LABS: AMPHETAMINE SCREEN, URINE NEGATIVE (NEGATIVE); BARBITURATE SCREEN URINE NEGATIVE (NEGATIVE); BENZODIAZEPINES SCREEN URINE NEGATIVE (NEGATIVE); CANNABINOID SCREEN, URINE POSITIVE (NEGATIVE); COCAINE SCREEN URINE NEGATIVE (NEGATIVE); METHADONE STAT NEGATIVE (NEGATIVE); METHAMPHETAMINE SCREEN URINE S NEGATIVE (NEGATIVE); OPIATE SCREEN URINE NEGATIVE (NEGATIVE); OXYCODONE STAT NEGATIVE (NEGATIVE); PROPOXYPHENE STAT NEGATIVE (NEGATIVE); TRICYCLIC ANTIDEPRESSANTS SCRE NEGATIVE (NEGATIVE)
[2021-01-22 22:27] LABS: HEPATITIS C ANTIBODY C Non-Reactive (Non-Reactive)
[2021-01-23] MEDS: RT-ALBUTEROL/IPRATROPIUM 3 ML (DUONEB) VIAL INH SCH ×2 (03:00→07:07)
[2021-01-23] MEDS: LACTATED RINGERS 1,000 ML IV SCH (03:29)
[2021-01-23 03:30] VITALS: BP 171/89
[2021-01-23] MEDS: MULTIVIT W/MINERALS TAB (THERAGRAN M) PO SCH (05:50)
[2021-01-23] MEDS: THIAMINE 100 MG (VITAMIN B-1) TAB PO SCH (05:50)
[2021-01-23 06:38] LABS: HEMOGLOBIN 14.3 g/dL (11.5-16.0)
[2021-01-23 06:40] LABS: MEAN PLATELET VOLUME 10.7 fL (9.0-12.2); WHITE BLOOD COUNT 3.2 10^3/uL (4.3-11.0)
[2021-01-23 06:54] LABS: ALBUMIN 2.7 GM/DL (3.2-4.5); POTASSIUM 3.5 MMOL/L (3.6-5.0)
[2021-01-23 06:56] LABS: TOTAL PROTEIN 5.5 GM/DL (6.4-8.2)
[2021-01-23 06:58] LABS: BILIRUBIN,TOTAL 2.3 MG/DL (0.1-1.0)
[2021-01-23 07:00] LABS: CREATININE SERUM 0.63 MG/DL (0.60-1.30)
[2021-01-23 08:03] VITALS: BP 151/93
[2021-01-23] MEDS: MAGNESIUM OXIDE (MAG-OX)400 MG TAB PO SCH (09:30)
[2021-01-23] MEDS: FOLIC ACID 1 MG TAB PO SCH (09:30)
--- NOTE | 2021-01-23 09:50 | Discharge Summary ---
ZAINAB STAFFORD Whit MED STUDENT 01/23/21 0950: Diagnosis/Chief Complaint Date of Admission Jan 21, 2021 at 21:03 Date of Discharge Discharge Date: Jan 23, 2021 Admission Diagnosis Acute hepatitis with fatty liver changes ETOH withdrawal Primary Care No,Local Physician Discharge Diagnosis Acute hepatitis with fatty liver changes, ETOH withdrawal (1) Acute hepatitis Status: Acute Assessment & Plan: Likely d/t ETOH abuse. LFTs improved over course of hospital stay. F/u with PCP to monitor labs. (2) Alcohol withdrawal Status: Acute Assessment & Plan: Thiamine, dextrose and folic acid given over course of hospital stay Discussed importance of abstinence from ETOH after discharge (3) COPD (chronic obstructive pulmonary disease) Status: Acute Assessment & Plan: F/u with PCP for COPD and medication refills. (4) Marijuana use Status: Acute Assessment & Plan: Discussed importance of cessation (5) Daily consumption of alcohol Status: Acute Assessment & Plan: Discussed importance of abstinence from ETOH Discharge Summary Discharge Physical Exam Allergies: Coded Allergies: codeine (Verified Adverse Reaction, Unknown, VOMITING, 07/09/17) Vitals & I&Os Vital Signs Date Time Temp Pulse Resp B/P (MAP) Pulse Ox O2 Delivery O2 Flow Rate FiO2 01/23/21 08:03 35.8 80 22 151/93 (112) 98 Room Air 01/22/21 10:46 0.00 01/22/21 00:52 21 General Appearance: No Apparent Distress, WD/WN HEENT: PERRL/EOMI Respiratory: Chest Non Tender, Lungs Clear, Normal Breath Sounds, No Accessory Muscle Use, No Respiratory Distress Cardiovascular: Regular Rate, Rhythm, No Gallop, No Murmur, Normal Peripheral Pulses Gastrointestinal: Normal Bowel Sounds, No Organomegaly, No Pulsatile Mass, Non Tender, Soft Extremity: Normal Capillary Refill, Non Tender, No Calf Tenderness, No Pedal Edema 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: Alert, Oriented x3, No Motor/Sensory Deficits, Normal Mood/Affect, 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 Pt has hx of COPD, tobacco and ETOH abuse, depression and diverticulosis. Pt reported she had N/V with weakness and high blood pressure for six days which prompted her to go to the ER. Pt reports she quit drinking three days prior to ED visit. Pt was previously drinking 4-5 tall cans of Natty light every day. Pt has no local physician, but sees Daphne Serrano for psychiatric concerns and was recently started on Prozac, but has since stopped taking this medication. Over the course of the hospital stay the pt became less nauseous and today is able to tolerate liquids and some bland solid foods in small portions. Pt reports she is slightly shakier today and has a productive cough. Pt states she has not smoked since admission, which may contribute to her cough. Pt reports feeling better overall and is ready to go home today. Labs (last 24 hrs) Laboratory Tests 01/23/21 05:34: White Blood Count 3.2L, Red Blood Count 4.15, Hemoglobin 14.3, Hematocrit 40, Mean Corpuscular Volume 97, Mean Corpuscular Hemoglobin 35H, Mean Corpuscular Hemoglobin Concent 36, Red Cell Distribution Width 14.2, Platelet Count 83L, Mean Platelet Volume 10.7, Percent Immature Platelet Fraction 5.0, Sodium Level 137, Potassium Level 3.5L, Chloride Level 104, Carbon Dioxide Level 22, Anion Gap 11, Blood Urea Nitrogen 2L, Creatinine 0.63, Estimat Glomerular Filtration Rate 101, BUN/Creatinine Ratio 3, Glucose Level 97, Calcium Level 8.0L, Corrected Calcium 9.0, Total Bilirubin 2.3H, Aspartate Amino Transf (AST/SGOT) 462H, Alanine Aminotransferase (ALT/SGPT) 437H, Alkaline Phosphatase 135, Total Protein 5.5L, Albumin 2.7L Patient resulted labs reviewed. Pending Labs Laboratory Tests 01/23/21 05:34: White Blood Count 3.2, Red Blood Count 4.15, Hemoglobin 14.3, Hematocrit 40, Mean Corpuscular Volume 97, Mean Corpuscular Hemoglobin 35, Mean Corpuscular Hemoglobin Concent 36, Red Cell Distribution Width 14.2, Platelet Count 83, Mean Platelet Volume 10.7, Percent Immature Platelet Fraction 5.0, Sodium Level 137, Potassium Level 3.5, Chloride Level 104, Carbon Dioxide Level 22, Anion Gap 11, Blood Urea Nitrogen 2, Creatinine 0.63, Estimat Glomerular Filtration Rate 101, BUN/Creatinine Ratio 3, Glucose Level 97, Calcium Level 8.0, Corrected Calcium 9.0, Total Bilirubin 2.3, Aspartate Amino Transf (AST/SGOT) 462, Alanine Aminotransferase (ALT/SGPT) 437, Alkaline Phosphatase 135, Total Protein 5.5, Albumin 2.7 Discharge Home Medications: Active Scripts Active No Active Prescriptions or Reported Medications Instructions to patient/family Please see electronic discharge instructions given to patient. EDMOND WKON MD 01/23/21 1358: Discharge Summary Discharge Physical Exam Allergies: Coded Allergies: codeine (Verified Adverse Reaction, Unknown, VOMITING, 07/09/17) Discussion & Recommendations Discharge Planning: >30 minutes discharge planning Supervisory-Addendum Brief Verification & Attestation Participated in pt care: history, MDM, physical Personally performed: exam, history, MDM, supervision of care Care discussed with: Medical Student Procedures: n/a Results interpretation: Verified all documentation Verification and Attestation of Medical Student E/M Service A medical student performed and documented this service in my presence. I reviewed and verified all information documented by the medical student and made modifications to such information, when appropriate. I personally performed the physical exam and medical decision making. Edmond Kwon, Jan 23, 2021,13:57 Problem Qualifiers (1) Alcohol withdrawal: Complication of substance-induced condition: with unspecified complication Qualified Codes: F10.239 - Alcohol dependence with withdrawal, unspecified (2) COPD (chronic obstructive pulmonary disease): COPD type: unspecified COPD Qualified Codes: J44.9 - Chronic obstructive pulmonary disease, unspecified ZAINAB STAFFORD MED STUDENT Jan 23, 2021 09:50 EDMOND KWON MD Jan 23, 2021 13:58
[2021-01-23 11:32] VITALS: BP 142/98
--- NOTE | 2021-01-23 13:15 | Discharge Inst-Simple/Standard ---
Discharge Inst-Standard Discharge Medications New, Converted or Re-Newed RX: Transmitted to Pharmacy Patient Instructions/Follow Up Plan of Care/Instructions/FU: Please continue to take your medications as written. Please follow up with your primary care doctor to follow up this hospital stay. Activity as Tolerated: Yes Discharge Diet: No Restrictions Return to The Hospital For: Chest pain, shortness of breath, fever, nausea, vomiting, if you feel you are getting worse. EDMOND KWON MD Jan 23, 2021 13:15
[2021-01-23] MEDS ORDERED: FLUT1DIS26 IH (13:17)
== END 2021-01-23 13:40 | disposition home or self-care (01) | DRG 433 ==
LOC: EDUNIT# 17:18 → ER 17:20 → 4TH 21:03
PROVIDERS: ADMIT Internal Medicine; ATTEND Internal Medicine
DX: K70.10 Alcoholic hepatitis without ascites (principal); F10.239 Alcohol dependence with withdrawal, unspecified; E87.1 Hypo-osmolality and hyponatremia; J44.9 Chronic obstructive pulmonary disease, unspecified; F17.210 Nicotine dependence, cigarettes, uncomplicated; F32.9 Major depressive disorder, single episode, unspecified; E78.00 Pure hypercholesterolemia, unspecified; K21.9 Gastro-esophageal reflux disease without esophagitis; I10 Essential (primary) hypertension; E87.6 Hypokalemia; Z88.5 Allergy status to narcotic agent; Z20.822 Contact with and (suspected) exposure to COVID-19; Y90.5 Blood alcohol level of 100-119 mg/100 ml
CPT/HCPCS: 36415; 76705; 80053; 80074; 80306; 80320; 81000; 83690; 83735; 84443; 84703; 85025; 85027; 85610; 86141; 87635; 87804; 94640; 94760

== ENCOUNTER 2021-12-11 10:02 | Emergency (ER) | payer OTHER ==
[~2021-12-11] VITALS: Ht 177.8 cm; Wt 108.8 kg
[~2021-12-11 10:02] MED LIST changes: +FLUT1DIS26 IH
[2021-12-11] MEDS ORDERED: RT-ALBUTEROL HFA 8.5 GM INHALER IH STA (10:30)
[2021-12-11] MEDS ORDERED: cloNIDine 0.1 MG (CATAPRES) TAB PO ONE (10:30)
--- NOTE | 2021-12-11 10:30 | ED Respiratory ---
General Chief Complaint: Cardiac/General Problems Stated Complaint: HIGH BP, COVID + Nursing Triage Note: COVID POSITIVE SINCE 12/04/21. PAULA DOUGLAS YESTERDAY FOR HTN. WAS GIVEN HCTZ 25MG TOOK FIRST THIS AM. AT HOME BP WAS 170/108 ALSO HAVING EYE "FEEL FUNNY". Source: patient Exam Limitations: no limitations History of Present Illness Date Seen by Provider: Dec 11, 2021 Time Seen by Provider: 10:20 Initial Comments Patient is a 51-year-old female who presents to the emergency department today with a chief complaint of concern for elevated blood pressure. Patient states that she has had COVID since December 04. She went and saw one of the providers at [facility] yesterday, they noted that her blood pressure was extremely high and started her on hydrochlorothiazide. She took 1 this morning at about 7:00 and waited at home for 2 or 3 hours and her blood pressure continued to climb. She has very mild headache and her vision feels "off". No chest pain but she has had a productive cough throughout the duration of her COVID infection. She is slightly short of breath. They told her to not use her albuterol secondary to her high blood pressure. She is a smoker but has not smoked in 3 days. No abdominal pain nausea, vomiting or diarrhea. No leg swelling. No problems with urination. No unilateral numbness weakness or tingling or loss of function. She did not take any antivirals with her COVID. History of hepatitis secondary to alcohol use last year and she states she only occasionally drinks beer, last intake was Thursday night. All other review of systems reviewed and negative except as stated Timing/Duration: getting worse Severity: moderate Prior Episodes/Possible Cause: illness exposure Associated Symptoms: cough (clearish sputum), fever/chills (yesterday - last day), headache (mild), shortness of breath, wheezing Allergies and Home Medications Allergies Coded Allergies: codeine (Verified Adverse Reaction, Unknown, VOMITING, 07/09/17) Patient Home Medication List Home Medication List Reviewed: Yes Azithromycin (Azithromycin) 250 Mg Tablet, 250 MG PO UD Prescribed by: AUGUSTO PEPE on 12/11/21 1121 Fluticasone/Salmeterol (Advair 250-50 Diskus) 1 Each Blst.w.dev, 1 EACH IH BID Prescribed by: EDMOND KWON on 01/23/21 1317 Review of Systems Review of Systems Constitutional: see HPI EENTM: no symptoms reported Respiratory: cough, phlegm, short of breath Cardiovascular: no symptoms reported Gastrointestinal: no symptoms reported Genitourinary: no symptoms reported Musculoskeletal: no symptoms reported Skin: no symptoms reported Past Ntkhcuf-Lzytus-Qyzgwb Hx Immunizations Up To Date Tetanus Booster (TDap): Less than 5yrs PED Vaccines UTD: Yes First/Initial COVID19 Vaccinat: AUGUST 2020 Second COVID19 Vaccination Elfego: AUGUST 2020 Third COVID19 Vaccination Date: AUGUST 2020 Seasonal Allergies Seasonal Allergies: Yes Past Medical History Surgeries: No Respiratory: Yes (BRONCHITIS) Cardiac: Yes High Cholesterol Neurological: No Reproductive Disorders: Yes Female Reproductive Disorders: Denies Genitourinary: No Gastrointestinal: Yes Gastroesophageal Reflux, Diverticulosis Musculoskeletal: No Endocrine: No Cancer: No Psychosocial: Yes Sleep Difficulties, Depression Integumentary: No Blood Disorders: No Physical Exam Vital Signs - First Documented 12/11/21 10:19 Temp 36.9 Pulse 85 Resp 18 B/P (MAP) 170/107 (128) Pulse Ox 96 O2 Delivery Room Air Capillary Refill : Height: 5'9.00" Weight: 204lbs. 2.0oz. 92.306443qb; 34.00 BMI Method:Stated General Appearance: WD/WN, no apparent distress Eyes: Bilateral Eye Normal Inspection, Bilateral Eye PERRL, Bilateral Eye EOMI HEENT: PERRL/EOMI, other (Slightly injected conjunctive a bilaterally) Respiratory: wheezing (Coarse wheezy breath sounds throughout both lung seals bilaterally) Cardiovascular: regular rate, rhythm (Upper 90s) Gastrointestinal: normal bowel sounds, non tender, soft Extremities: normal range of motion, normal inspection, no pedal edema 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: alert, normal mood/affect, oriented x 3 Skin: normal color, warm/dry Progress/Results/Core Measures Suspected Sepsis SIRS Temperature: Pulse: 85 Respiratory Rate: 18 Blood Pressure 170 /107 Mean: 128 Results/Orders My Orders Orders - AUGUSTO PEPE MD Chest 1 View, Ap/Pa Only (12/11/21 10:30) Covid-19 External Lab Results (12/11/21 10:30) Isolation Central Supply Req (12/11/21 10:30) Clonidine Tablet (Catapres Tablet) (12/11/21 10:30) Albuterol Inhaler (Albuterol) (12/11/21 10:30) Medications Given in ED Current Medications Medications Dose Ordered Sig/Gill Route Start Time Stop Time Status Last Admin Dose Admin Clonidine HCl 0.1 mg ONCE ONCE PO 12/11/21 10:30 12/11/21 10:32 DC 12/11/21 10:36 0.1 MG Vital Signs/I&O 12/11/21 10:19 Temp 36.9 Pulse 85 Resp 18 B/P (MAP) 170/107 (128) Pulse Ox 96 O2 Delivery Room Air Capillary Refill : Blood Pressure Mean: 128 Progress Note : Time: 11:15 Progress Note Chest x-ray shows no acute cardiopulmonary abnormality. Her blood pressure is down to 122/88. She feels much improved. Will encourage her to go ahead and use her albuterol as needed as she heals from her COVID infection. I will also encourage her to take the hydrochlorothiazide daily and follow-up closely with her primary care doctor. Patient is comfortable with plan of care. All questions are sought and answered. Diagnostic Imaging Diagonstic Imaging: Xray Plain Films/CT/US/NM/MRI: chest Comments [facility], [place] NAME: DAMIR PUENTES [facility] REC#: [id number] PT STATUS: REG ER : 1970 PHYSICIAN: AUGUSTO PEPE MD ADMIT DATE: 12/11/21/ER Draft Date of Exam:12/11/21 CHEST 1 VIEW, AP/PA ONLY INDICATION: Cough and shortness of breath. TIME OF EXAM: 10:42 a.m. COMPARISON: Correlation is made with prior chest from 09/30/2017. FINDINGS: Heart size is normal. BB foreign body overlies the cardiac silhouette, unchanged from prior. Lungs are clear. The pulmonary vascularity is normal. There is no effusion or pneumothorax. IMPRESSION: No acute cardiopulmonary process is detected. Dictated on workstation # [id number] Dict: 12/11/21 1054 Trans: 12/11/21 1059 [id number] Interpreted by: LATOYA MCCULLOUGH MD Electronically signed by: Departure Impression Primary Impression: COVID-19 Additional Impressions: High blood pressure Qualified Codes: I10 - Essential (primary) hypertension Bronchitis Disposition: 01 HOME, SELF-CARE Condition: Improved Departure-Patient Inst. Decision time for Depature: 11:16 Referrals: VIOLETA PAZ,LOCAL PHYSICIAN (PCP) Primary Care Physician Patient Instructions: High Blood Pressure in Adults Add. Discharge Instructions: Drink plenty of fluids to stay well-hydrated. Take the azithromycin antibiotic as scheduled over the course of the next 5 days. Continue the blood pressure medication daily. You may resume using your albuterol inhaler 2 puffs every 6 hours as needed for shortness of breath/wheezing. If you develop worsening shortness of breath, cough, have a return of fever or any other emergent concerning symptoms develop please come back to the emergency room for reevaluation. If you do not hear from [facility] by the end of the week, call on Thursday for a follow-up with your primary care provider. Scripts Azithromycin (Azithromycin) 250 Mg Tablet 250 MG PO UD, #6 TAB TAKE 2 TABLETS ON DAY ONE THEN TAKE 1 TABLET DAILY FOR FOUR MORE DAYS Prov: AUGUSTO PEPE MD 12/11/21 Copy Copies To 1: VIOLETA PAZ KATHRYN M MD Dec 11, 2021 10:30
--- NOTE | 2021-12-11 10:59 | Diagnostic Imaging Report ---
INDICATION: Cough and shortness of breath. TIME OF EXAM: 10:42 a.m. COMPARISON: Correlation is made with prior chest from 09/30/2017. FINDINGS: Heart size is normal. BB foreign body overlies the cardiac silhouette, unchanged from prior. Lungs are clear. The pulmonary vascularity is normal. There is no effusion or pneumothorax. IMPRESSION: No acute cardiopulmonary process is detected. Dictated by: Dictated on workstation # [id number]
[2021-12-11] MEDS ORDERED: AZIT250T12 PO (11:21)
[2021-12-11 11:44] VITALS: BP 133/91
== END 2021-12-11 11:45 | disposition home or self-care (01) ==
LOC: EDUNIT# 10:02 → ER 10:04
DX: U07.1 COVID-19 (principal); I10 Essential (primary) hypertension; J40 Bronchitis, not specified as acute or chronic; Z87.891 Personal history of nicotine dependence; Z73.0 Burn-out
CPT/HCPCS: 71045